=== PATIENT | female | born 2000 | race Caucasian/White ===

== ENCOUNTER 2018-05-23 12:56 | Inpatient (IN) ==
[2018-05-23] MEDS ORDERED: KETOROLAC TROMETHAMINE 15 MG/ML VIAL IV STA (14:09)
[2018-05-23] MEDS ORDERED: SODIUM CHLORIDE 0.9% 1000ML 1,000 ML IV SCH ×2 (14:15→18:00)
[2018-05-23 14:40] LABS: Appearance Urine Turbid (Clear); Bacteria Urine Automated 2+ (Negative); Bilirubin Urine Negative (Negative); Color Urine Dark Yellow; Epithelial Cell Urine Auto >30 /lpf (0-5); Glucose Urine UA Negative (Negative); Ketones Urine Negative (Negative); Leukocyte Esterase Urine 3+ (Negative); Nitrite Urine Negative (Negative); Protein Urine 2+ (Negative); Urobilinogen Urine Negative (Negative); WBC Urine Automated >30 /hpf (0-5)
--- NOTE | 2018-05-23 14:40 | XRay Report ---
XR chest 1V portable HISTORY: 17 years-old Female right rib pain acute atypical chest pain with right-sided rib pain. COMPARISON: None available TECHNIQUE: Portable AP view of the chest FINDINGS: Cardiomediastinal and hilar silhouettes are within normal limits. No pneumothorax, pleural effusion, focal airspace consolidation or overt pulmonary edema. The bones of the chest appear grossly intact. Mild convex right curvature about the lumbar spine, partially imaged. No acute displaced rib fracture identified. IMPRESSION: No acute process. The above report was generated using voice recognition software. It may contain grammatical, syntax o r spelling errors. Electronically signed by: Galindo Palacio M.D. 05/23/2018 2:39 PM
[2018-05-23 15:04] LABS: Basophils # (auto) 0.02 K/uL (0-0.2); Basophils % (auto) 0.2 %; Hematocrit (blood only) 37.4 % (37-47); Hemoglobin 12.5 g/dL (12.0-16.0); Immature Granulocytes # (auto) 0.12 K/uL (0.00-0.02); Immature Granulocytes % (auto) 0.9 %; Lymphocytes % (auto) 3.9 %; Mean Corpuscular Hgb Conc 33.4 g/dL (32-36); Mean Corpuscular Volume 90.1 fL (80-100); Mean Platelet Volume 10.8 fL (7.4-10.4); Monocytes # (auto) 0.43 K/uL (0.11-0.59); Monocytes % (auto) 3.4 %; Neutrophils # (auto) 11.64 K/uL (1.4-6.5); Neutrophils % (auto) 91.6 %; Platelet Count 221 K/uL (130-400); RDW Coefficient of Variation 13.7 % (11.5-14.5); RDW Standard Deviation 44.9 fL (36.4-46.3); Red Blood Count 4.15 M/uL (4.2-5.4); White Blood Count 12.71 K/uL (4.8-10.8)
[2018-05-23 15:19] LABS: Albumin Level 3.5 gm/dl (3.4-5.0); BUN Creatinine Ratio 12.6 (10-20); Calcium 9.1 mg/dl (8.5-10.1); Creatinine Clr Calc Pharmacy 100.6 ml/min; Est GFR (African American) 101.9; Potassium 3.2 mmol/L (3.5-5.1)
[2018-05-23 15:22] LABS: Albumin Globulin Ratio 0.9 (0.9-2); Bilirubin,Total 0.6 mg/dl (0.2-1); Globulin 3.9 gm/dl (2.5-4.0); Total Protein 7.4 gm/dl (6.4-8.2)
[2018-05-23] MEDS ORDERED: MoRPHine SULFATE 4 MG/ML 1 ML CARP\\VIAL IV STA (16:43)
[2018-05-23] MEDS ORDERED: ONDANSETRON INJ 2 MG/ML 2 ML VIAL IV STA (16:43)
--- NOTE | 2018-05-23 16:48 | Ultrasound Report ---
US gallbladder HISTORY: Pain. Nausea. ruq pain COMPARISON: None. FINDINGS: Normal gallbladder. Common bile duct 3 mm. Liver is uniform. Pancreas and right kidney are unremarkab le. No evidence for hydronephrosis. IMPRESSION: Normal study The above report was generated using voice recognition software. It may contain grammatical, syntax or spelling errors. Electronically signed by: Humphrey Portillo M.D. 05/23/2018 4:47 PM
--- NOTE | 2018-05-23 17:19 | CT Scan Report ---
CT angio chest PE protocol CLINICAL HISTORY: 17 years-old Female presenting with right rib pain, elevated d dimer. TECHNIQUE: Multidetector CT angiography of the chest was performed after administration of intravenou s contrast. 3-D volumetric and/or maximum intensity projection (MIP) images were subsequently reconst ructed for review. IV contrast: 89 mL of Optiray 320. One or more dose lowering techniques were used consistent with the principles of ALARA (as low as reasonably achievable), including automatic exposu re control, mA or kV adjustment to individual patient size, and/or use of iterative reconstruction. COMPARISON: Chest x-ray from earlier today. CT DOSE (mGy.cm): The estimated cumulative dose is 1017.79 mGycm. FINDINGS: Hypoid Gear Tester topogram: Unremarkable. Pulmonary vasculature: The study is suboptimal for the assessment of the pulmonary vascular tree secondary to timing of the contrast bolus. Allowing for limited image quality, no central filling defect to suggest pulmonary em bolus. Main pulmonary artery is not enlarged. No flattening of the interventricular septum. No intrac ardiac filling defect. No reflux of contrast into the hepatic veins. Remaining chest: On soft tissue windows, normal thyroid and thoracic inlet. No axillary, supraclavicular, hilar, or me diastinal lymphadenopathy. Normal aorta. Normal heart size. No pericardial or pleural effusion. Upper abdomen normal. On lung windows, no pneumothorax. Central airways patent. No focal infiltrate or nodule. On bone windows, normal osseous structures. IMPRESSION: 1. Allowing for suboptimal image quality, no evidence of pulmonary embolus. No acute intrathoracic p athology. Electronically signed by: Dom Arreaga M.D. 05/23/2018 5:18 PM
--- NOTE | 2018-05-23 17:26 | CT Scan Report ---
CT abd pelvis IV con only CT DOSE: HISTORY: Pain. Nausea. ruq pain TECHNIQUE: Multiaxial CT images of the abdomen and pelvis were performed following the use of intrave nous contrast. A dose lowering technique was utilized adhering to the principles of ALARA. COMPARISON STUDY: None. FINDINGS: Lung bases are clear. Liver spleen and pancreas are uniform. Heterogeneous enhancement characteristics are noted upper and lower pole right kidney. This is associ ated with mild degree of perinephric infiltrative change primarily adjacent to the lower pole. This appearance is highly suggestive of multifocal pyelonephritis. Nonobstructive bowel pattern. Unremarkable appendix. Uterus is anteflexed. Bladder is midline. No sig nificant free fluid within the pelvic cul-de-sac. IMPRESSION: 1. Right renal pyelonephritis. 2. Mild perinephric infiltrative change. 3. Study is otherwise negative. 4. This study should be repeated a later date following resolution of current symptomatology to exclu de the unlikely possibility of a space-occupying lesion. The above report was generated using voice recognition software. It may contain grammatical, syntax or spelling errors. Electronically signed by: Humphrey Portillo M.D. 05/23/2018 5:24 PM
[2018-05-23] MEDS ORDERED: cefTRIAXone SODIUM 1000MG/50ML D5W ONE (17:39)
[2018-05-23] MEDS ORDERED: cefTRIAXone SODIUM 1,000 MG/50 ML BAG IV STA (17:46)
[2018-05-23] MEDS ORDERED: ACETAMINOPHEN 500 MG TAB PO STA (17:46)
--- NOTE | 2018-05-23 18:15 | Emergency Department Note ---
History of Present Illness General Chief complaint: Flu Like Symptoms Stated complaint: FLU,VOMITTING, BAD SHARP PAIN RIGHT ABD Time Seen by Provider: 05/23/18 13:42 Source: patient Mode of arrival: ambulatory Limitations: no limitations History of Present Illness Maximum Pain Intensity: 6 This patient is a 17-year-old female who presents to the emergency department complaining of flulike symptoms. The patient reports that she woke up yesterday with a fever. She has also had body aches, headache, chills, and pain in her right side with vomiting. She does report that 2 days ago prior to the onset, she had some pain in the right side of her back but this has now moved to the abdomen. She rates her discomfort a 10/10 and states it is a very sharp pain. Nothing has made the pain better or worse. She has been taking [id number] ibuprofen and Tylenol which she does feel has been helping her fever. She first developed the vomiting last night and has remained nauseous. She denies any urinary symptoms, changes in bowel movements, neck pain/stiffness , cough or shortness of breath. She denies any history of similar symptoms. She had left hip labrum repair 2 months ago and was treated for a staph infection afterwards, but has been off antibiotics for approximately 3 weeks and states the hip has been feeling well. She reports a prior history of tonsillectomy and adenoidectomy and inguinal hernia repair and denies any other medical problems. The patient does report she was seen at [facility] yesterday and had a negative influenza test. Home Medications Home Medications Medication Instructions Recorded Confirmed Type ibuprofen 200 mg PO QID PRN 05/23/18 05/23/18 History lisdexamfetamine [Vyvanse] 20 mg PO QAM 05/23/18 05/23/18 History naproxen sodium 220 mg PO BID PRN 05/23/18 05/23/18 History norgestimate-ethinyl estradiol 1 tab PO DAILY 05/23/18 05/23/18 History [Valentina (28)] Allergies Allergy/AdvReac Type Severity Reaction Status Date / Time No Known Allergies Allergy Unverified 05/23/18 13:27 Past Med/Surg History Medical History No significant active problems Surgical History History of tonsillectomy Social History Feels Safe at Home: Yes Smoking Status: Never smoker Review of Systems A total of 10 systems reviewed and were otherwise negative Physical Exam Vital Signs Vital Signs - 24 hr 05/23/18 13:00 05/23/18 15:09 05/23/18 16:55 Temperature 37.4 C Temperature Source Oral Sepsis Recent Fever Within 48 Hours Yes Sepsis New/Unexplained Change in Mental Status No Sepsis Action Taken by Nursing No Action Required Pulse Rate 138 H Pulse Rate [Finger] 102 H 120 H Respiratory Rate 20 16 22 Respiratory Effort / Characteristics Non-Labored Respiratory Depth Normal Normal Blood Pressure 103/65 Blood Pressure [Left Arm] 110/79 104/67 Blood Pressure Mean 77 Blood Pressure Mean [Left Arm] 89 79 Blood Pressure Position [Left Arm] Lying Pulse Oximetry 97 100 98 Oxygen Delivery Method Room Air VITALS: Vitals are noted on the nurse's note and reviewed by myself. Vital signs stable. GENERAL: This is a 17-year-old female, in no acute distress, nondiaphoretic, well-developed well-nourished. SKIN: The skin was without rashes. EARS: External auditory canals clear, tympanic membranes pearly galeano without erythema or effusion bilaterally. EYES: Pupils equal round and reactive to light and accommodation. MOUTH: Mucous membranes moist. Tonsils are not enlarged. Pharynx without erythema or exudate. NECK: Supple without nuchal rigidity. No lymphadenopathy. HEART: Regular rate and rhythm without murmurs gallops or rubs. LUNGS: Clear to auscultation bilaterally without wheezes, rales or rhonchi. ABDOMEN: Positive bowel sounds x 4. Soft, tenderness in the right upper quadrant and right flank. No guarding or rebound tenderness. NEURO: Patient was alert and oriented to person place and time. Course Reevaluation(s) Reevaluation #1: Patient was reevaluated and still having pain. A dose of morphine was ordered. Reevaluation #2: Patient was reevaluated. She has now developed a fever and is still tachycardic. She is agreeable to admission. An additional liter of fluids as well as Tylenol and Rocephin were ordered. Blood cultures were ordered and drawn prior to administration of antibiotics. Consultations Consultation #1: Dr. Lemus Administered Medications Sodium Chloride (Nss 1000ml) 1,000 mls @ 999 mls/hr IV .Q1H1M JAVIER Stop: 05/23/18 19:00 Last Admin: 05/23/18 18:01 Dose: 999 mls/hr Discontinued Medications Acetaminophen (Tylenol) 1,000 mg PO NOW STA Stop: 05/23/18 17:47 Last Admin: 05/23/18 18:01 Dose: 1,000 mg Sodium Chloride (Nss 1000ml) 1,000 mls @ 999 mls/hr IV .Q1H1M JAVIER Stop: 05/23/18 15:15 Last Admin: 05/23/18 15:07 Dose: 999 mls/hr Ketorolac Tromethamine (Toradol) 15 mg IV NOW STA Stop: 05/23/18 14:10 Last Admin: 05/23/18 15:05 Dose: 15 mg Morphine Sulfate (Morphine Sulfate) 4 mg IV NOW STA Stop: 05/23/18 16:44 Last Admin: 05/23/18 16:50 Dose: 4 mg Ondansetron HCl (Zofran) 4 mg IV NOW STA Stop: 05/23/18 16:44 Last Admin: 05/23/18 16:50 Dose: 4 mg Medical Decision Making Differential Diagnosis Difficult diagnosis includes influenza, pyelonephritis, cholecystitis, PE, pneumonia, pancreatitis, gastroenteritis, viral illness, among others. Home Medications Current Medication List: was personally reviewed by me Laboratory Data Attestation: I reviewed the patient's lab results. Result diagrams: 05/23/18 14:42 05/23/18 14:42 Lab Results 05/23/18 05/23/18 05/23/18 Range/Units 14:24 14:24 14:42 WBC 12.71 H (4.8-10.8) K/uL RBC 4.15 L (4.2-5.4) M/uL Hgb 12.5 (12.0-16.0) g/dL Hct 37.4 (37-47) % MCV 90.1 (80-100) fL MCH 30.1 (25-34) pg MCHC 33.4 (32-36) g/dL RDW Std Deviation 44.9 (36.4-46.3) fL RDW Coeff of Karoline 13.7 (11.5-14.5) % Plt Count 221 (130-400) K/uL MPV 10.8 H (7.4-10.4) fL Immature Gran % (Auto) 0.9 % Neut % (Auto) 91.6 % Lymph % (Auto) 3.9 % [place] % (Auto) 3.4 % Eos % (Auto) 0.0 % Baso % (Auto) 0.2 % Immature Gran # (Auto) 0.12 H (0.00-0.02) K/uL Neut # (Auto) 11.64 H (1.4-6.5) K/uL Lymph # (Auto) 0.50 L (1.2-3.4) K/uL [place] # (Auto) 0.43 (0.11-0.59) K/uL Eos # (Auto) 0.00 (0-0.5) K/uL Baso # (Auto) 0.02 (0-0.2) K/uL D-Dimer (0-500) ug/L FEU Sodium (136-145) mmol/L Potassium (3.5-5.1) mmol/L Chloride (98-107) mmol/L Carbon Dioxide (21-32) mmol/L Anion Gap (3-11) BUN (7-18) mg/dl Creatinine (0.6-1.2) mg/dl Est Cr Clr Drug Dosing ml/min Est GFR ( Amer) Est GFR (Non-Af Amer) BUN/Creatinine Ratio (10-20) Glucose (70-99) mg/dl Calcium (8.5-10.1) mg/dl Total Bilirubin (0.2-1) mg/dl AST (15-37) U/L ALT (12-78) U/L Alkaline Phosphatase (45-117) U/L Total Protein (6.4-8.2) gm/dl Albumin (3.4-5.0) gm/dl Globulin (2.5-4.0) gm/dl Albumin/Globulin Ratio (0.9-2) Lipase (73-393) U/L Urine Color Dark Yellow Urine Appearance Turbid H (Clear) Urine pH 5.0 (4.5-7.5) Ur Specific [place] 1.020 (1.000-1.030) Urine Protein 2+ H (Negative) Urine Glucose (UA) Negative (Negative) Urine Ketones Negative (Negative) Urine Blood 2+ H (Negative) Urine Nitrite Negative (Negative) Urine Bilirubin Negative (Negative) Urine Urobilinogen Negative (Negative) Ur Leukocyte Esterase 3+ H (Negative) Urine WBC (Auto) >30 H (0-5) /hpf Urine RBC (Auto) 10-30 H (0-4) /hpf U Hyaline Cast (Auto) Not Reportable U Epithel Cells (Auto) >30 H (0-5) /lpf Urine Bacteria (Auto) 2+ H (Negative) POC Ur Test NEG (NEG) 05/23/18 05/23/18 Range/Units 14:42 14:42 WBC (4.8-10.8) K/uL RBC (4.2-5.4) M/uL Hgb (12.0-16.0) g/dL Hct (37-47) % MCV (80-100) fL MCH (25-34) pg MCHC (32-36) g/dL RDW Std Deviation (36.4-46.3) fL RDW Coeff of Karoline (11.5-14.5) % Plt Count (130-400) K/uL MPV (7.4-10.4) fL Immature Gran % (Auto) % Neut % (Auto) % Lymph % (Auto) % [place] % (Auto) % Eos % (Auto) % Baso % (Auto) % Immature Gran # (Auto) (0.00-0.02) K/uL Neut # (Auto) (1.4-6.5) K/uL Lymph # (Auto) (1.2-3.4) K/uL [place] # (Auto) (0.11-0.59) K/uL Eos # (Auto) (0-0.5) K/uL Baso # (Auto) (0-0.2) K/uL D-Dimer 2640 H* (0-500) ug/L FEU Sodium 138 (136-145) mmol/L Potassium 3.2 L (3.5-5.1) mmol/L Chloride 103 (98-107) mmol/L Carbon Dioxide 25 (21-32) mmol/L Anion Gap 10.0 (3-11) BUN 12 (7-18) mg/dl Creatinine 0.94 (0.6-1.2) mg/dl Est Cr Clr Drug Dosing 100.6 ml/min Est GFR ( Amer) 101.9 Est GFR (Non-Af Amer) 88.0 BUN/Creatinine Ratio 12.6 (10-20) Glucose 101 H (70-99) mg/dl Calcium 9.1 (8.5-10.1) mg/dl Total Bilirubin 0.6 (0.2-1) mg/dl AST 12 L (15-37) U/L ALT 15 (12-78) U/L Alkaline Phosphatase 47 (45-117) U/L Total Protein 7.4 (6.4-8.2) gm/dl Albumin 3.5 (3.4-5.0) gm/dl Globulin 3.9 (2.5-4.0) gm/dl Albumin/Globulin Ratio 0.9 (0.9-2) Lipase 52 L (73-393) U/L Urine Color Urine Appearance (Clear) Urine pH (4.5-7.5) Ur Specific [place] (1.000-1.030) Urine Protein (Negative) Urine Glucose (UA) (Negative) Urine Ketones (Negative) Urine Blood (Negative) Urine Nitrite (Negative) Urine Bilirubin (Negative) Urine Urobilinogen (Negative) Ur Leukocyte Esterase (Negative) Urine WBC (Auto) (0-5) /hpf Urine RBC (Auto) (0-4) /hpf U Hyaline Cast (Auto) U Epithel Cells (Auto) (0-5) /lpf Urine Bacteria (Auto) (Negative) POC Ur Test (NEG) Imaging Data Attestation: I personally reviewed and interpreted this imaging study as follows : Radiologist's Impression: XR chest 1V portable IMPRESSION: No acute process. US gallbladder IMPRESSION: Normal study CT angio chest PE protocol IMPRESSION: 1. Allowing for suboptimal image quality, no evidence of pulmonary embolus. No acute intrathoracic pathology. CT abd pelvis IV con only FINDINGS: Lung bases are clear. Liver spleen and pancreas are uniform. Heterogeneous enhancement characteristics are noted upper and lower pole right kidney. This is associated with mild degree of perinephric infiltrative change primarily adjacent to the lower pole. This appearance is highly suggestive of multifocal pyelonephritis. Nonobstructive bowel pattern. Unremarkable appendix. Uterus is anteflexed. Bladder is midline. No significant free fluid within the pelvic cul-de-sac. IMPRESSION: 1. Right renal pyelonephritis. 2. Mild perinephric infiltrative change. 3. Study is otherwise negative. 4. This study should be repeated a later date following resolution of current symptomatology to exclude the unlikely possibility of a space-occupying lesion. Blood Pressure Blood Pressure Findings: Normal blood pressure MDM Narrative The patient is a 17-year-old female who presents today complaining of flulike symptoms as well as right flank/upper abdominal pain. Labs revealed a leukocytosis of 12.71. Kidney function is within normal limits. No concerning electrolyte abnormalities. Chest x-ray and right upper quadrant ultrasound both negative. Given patient's location of pain and significant tachycardia on arrival, d-dimer was done which was found to be elevated at 2640. CT of the chest as well as the abdomen and pelvis were done. There was no evidence of PE , however CT abdomen pelvis did show right pyelonephritis which correlates with patient's urinalysis, positive for 2+ bacteria, greater than 30 white blood cells and 3+ leukocyte esterase. Patient was initially afebrile and heart rate had increased to 102 after receiving fluids, however on my reassessment she had spiked a temperature of 39 C and her heart rate was again elevated in the 120s-130s. Given these findings , [facility] and [facility]. Blood cultures were drawn and are pending. Urine culture pending. Patient was given 1 g Rocephin and did receive 2 L IV fluids as well as 1 g Tylenol, 4 mg morphine, 4 mg Zofran and 15 mg Toradol for her symptoms. Impression & Plan Pyelonephritis Discharge Plan Visit Data Chief Complaint: Flu Like Symptoms Stated Complaint: FLU,VOMITTING, BAD SHARP PAIN RIGHT ABD ED Provider: Gaetano Garduno ED Midlevel Provider: Nano Karimi Discharge Problem: Pyelonephritis Patient Disposition: Admitted As Inpatient Forms Stand Alone Forms: My [facility] Prescriptions Prescriptions: No Action norgestimate-ethinyl estradiol [Sprintec (28)] 0.25-35 mg-mcg Tablet 1 tab PO DAILY RF: 0 ibuprofen 200 mg Tablet 200 mg PO QID PRN (Reason: Pain) RF: 0 naproxen sodium 220 mg Capsule 220 mg PO BID PRN (Reason: HIP PAIN) RF: 0 lisdexamfetamine [Vyvanse] 20 mg Tablet,Chewable 20 mg PO QAM RF: 0 Referrals Referrals: PCP,NO [Primary Care Provider] -
[2018-05-23] MEDS ORDERED: ONDANSETRON INJ 2 MG/ML 2 ML VIAL IV PRN (21:01)
--- NOTE | 2018-05-23 21:33 | History & Physical Report ---
Date of Service May 23, 2018 Assessment & Plan (1) Pyelonephritis: Right pyelo diagnosed with positive urine and seen on CT a/p on 05/23. - Ceftriaxone - IV fluids - Pain control - Follow up cultures (2) Labral tear of hip joint: Repair done ~2 months ago with a post-operative Staph infection, now resolved. Continues to take ibuprofen and naproxen 1-2 times a day. - No inpatient needs (3) DVT prophylaxis: SCDs - Low risk patient History of Present Illness Primary Care Provider: NO PCP 17yo F w/ no significant PMH who presents with pyelonephritis. Patient reports that she initially noted right flank & back pain on Monday. She also had some mild UTI symptoms at that time, but she has had quite a few UTIs, and didn't think much of it. However, on Monday, she also had a fever to 101, felt achy, stiff, and also had some nausea and vomiting. The UTI symptoms got worse as well on Monday. In the ED, she initially had a pulse of 130 which improved with IV fluids and Tylenol. Allergies Allergy/AdvReac Type Severity Reaction Status Date / Time No Known Allergies Allergy Unverified 05/23/18 13:27 Home Medications Home Medications Medication Instructions Recorded Confirmed Type ibuprofen 200 mg PO QID PRN 05/23/18 05/23/18 History lisdexamfetamine [Vyvanse] 20 mg PO QAM 05/23/18 05/23/18 History naproxen sodium 220 mg PO BID PRN 05/23/18 05/23/18 History norgestimate-ethinyl estradiol 1 tab PO DAILY 05/23/18 05/23/18 History [Sprintec (28)] Past Med/Surg History Medical History Labral tear of hip joint No significant active problems UTI (urinary tract infection) Surgical History History of tonsillectomy Family History Brother Asthma Social History Current Living Situation: Other Current Living Situation Comment: apartment w/ 4 roommates Feels Safe at Home: Yes Smoking Status: Never smoker Do You Dip or Chew Tobacco: No Hx Alcohol Use: No Hx Substance Use: No Beliefs That Will Affect Care: None Preferred Language: Bulgarian Communication Ability: Effective Talking Books Library Clerk Required: No Review of Systems Constitutional: + fever, + chills, + body aches and + fatigue; no sweats Eyes: no diplopia Ear, Nose, Mouth, Throat: no ear trauma, no nasal discharge and no dental pain Respiratory: no cough, no chest congestion and no dyspnea Cardiovascular: no chest pain, no dyspnea on exertion, no palpitations and no syncope Gastrointestinal: no abdominal pain, no belching, no constipation, no diarrhea/ loose stools, no blood in stools and no melena Genitourinary (Female): + flank pain Musculoskeletal: no back pain, no joint pain and no muscle weakness Integumentary: no rash, no skin ulcer and no erythema Neurologic: no generalized weakness, no loss of sensation, no numbness and no paresthesia Psychiatric: no depression and no anxiety Endocrine: no fatigue, no polydipsia and no polyphagia Physical Exam 2 Vital Signs (Past 24 Hours): Last Vital Signs Temp 38.8 C H 05/23/18 18:30 Pulse 120 H 05/23/18 19:11 Resp 18 05/23/18 19:11 BP 107/77 05/23/18 19:11 Pulse Ox 100 05/23/18 19:11 Constitutional: WD/WN, vitals as above Eyes: EOM intact bilaterally; no conjunctival abnormality ENMT: external ear and nose normal, oropharynx normal Neck: trachea midline, no thyromegaly normal visual inspection Respiratory: normal respiratory effort, lungs clear to auscultation no respiratory distress Cardiovascular: Rate/Rhythm: + tachycardic Heart Sounds: normal S1 and normal S2 Extremities: no edema Gastrointestinal (Abdomen): Inspection/Auscultation: abdomen normal to inspection; abdomen not distended Musculoskeletal: no cyanosis or clubbing, extremities motor strength 5/5 Skin: no rashes, warm and dry Neurologic: moves all extremities and awake Psychiatric: Orientation: alert, oriented to person and cooperative
[2018-05-23] MEDS: ACETAMINOPHEN 325 MG TAB PO PRN (21:43)
[2018-05-23] MEDS: POTASSIUM CHLORIDE 40 MEQ in SODIUM CHLORIDE 0.9% 1000ML 1,000 ML IV SCH (23:25)
[2018-05-24] MEDS: ACETAMINOPHEN 325 MG TAB PO PRN ×2 (02:39→06:44)
[2018-05-24] MEDS ORDERED: ACETAMINOPHEN 325 MG TAB PO STA (04:03)
[2018-05-24] MEDS: POTASSIUM CHLORIDE 40 MEQ in SODIUM CHLORIDE 0.9% 1000ML 1,000 ML IV SCH ×3 (06:47→23:11)
[2018-05-24 08:08] LABS: BUN Creatinine Ratio 13.8 (10-20); Calcium 7.7 mg/dl (8.5-10.1); Creatinine Clr Calc Pharmacy 116.7 ml/min; Est GFR (Non-African American) 105.3; Magnesium 1.6 mg/dl (1.8-2.4); Potassium 3.7 mmol/L (3.5-5.1)
[2018-05-24 08:13] LABS: Hematocrit (blood only) 27.3 % (37-47); Hemoglobin 9.3 g/dL (12.0-16.0); Mean Corpuscular Hgb Conc 34.1 g/dL (32-36); Mean Corpuscular Volume 89.5 fL (80-100); Platelet Count 179 K/uL (130-400); RDW Coefficient of Variation 13.8 % (11.5-14.5); RDW Standard Deviation 45.3 fL (36.4-46.3); Red Blood Count 3.05 M/uL (4.2-5.4); White Blood Count 9.53 K/uL (4.8-10.8)
--- NOTE | 2018-05-24 09:45 | Hospitalist Progress Note ---
Date of Service May 24, 2018 Assessment & Plan (1) Pyelonephritis: Right pyelo diagnosed with positive urine and seen on CT a/p on 05/23. patient not feeling better overnight, still with fevers, chills, sweats and aches still with tachycardia, BP low normal continue Rocephin for now, add a dose of Levaquin 750mg this morning urine culture growing E coli, sensitivities pending blood culture negative continue NSS at 125cc/hr will see how she feels with addition of Levaquin (2) Sepsis: due to pyelonephritis leukocytosis and febrile, tachycardia follow up blood cultures no evidence of end organ damage or shock (3) Hypomagnesemia: replace IV today level low at 1.6 repeat tomorrow (4) Anemia: Hb dropped to 9 from 12, likely dilutional as there is no evidence of bleeding could consider hemolysis, platelets normal will repeat Hb this afternoon with bilirubin, LDH if dropping further could get a smear to look for schistocytes (5) DVT prophylaxis: SCDs - Low risk patient (6) Labral tear of hip joint: Repair done ~2 months ago with a post-operative Staph infection, now resolved. Continues to take ibuprofen and naproxen 1-2 times a day. - No inpatient needs Subjective reviewed labs, WBC normal at 9 compared to 12 on admission Cr is 0.8 and K is stable Mg is 1.6 this morning, replacement ordered still with tachycardia, BP low normal spiking fevers over night despite a dose of Rocephin patient not feeling any better since admission fever, chills, sweats last night, still with flank pain tried to eat this morning but food made her nauseated, no vomiting generalized aches discussed trying Levaquin in addition to the Rocephin since she did not feel any better she agreed Review of Systems All systems reviewed & are unremarkable except as noted in HPI & below Constitutional: + fever, + chills, + sweats, + body aches, + fatigue, + malaise and + weakness Genitourinary (Female): + flank pain (right sided) Physical Exam 2 Vital Signs (Past 24 Hours): Last Vital Signs Temp 37.8 C H 05/24/18 07:43 Pulse 118 H 05/24/18 07:16 Resp 18 05/24/18 07:16 BP 96/63 L 05/24/18 07:16 Pulse Ox 98 05/24/18 07:16 Constitutional: WD/WN, vitals as above Eyes: PERRL, conjunctivae normal, anicteric sclerae ENMT: external ear and nose normal, oropharynx normal Neck: trachea midline, no thyromegaly Respiratory: normal respiratory effort, lungs clear to auscultation Cardiovascular: Rate/Rhythm: regular rhythm and + tachycardic Heart Sounds : normal S1 and normal S2; no murmur Vessels: normal peripheral pulses Gastrointestinal (Abdomen): normal bowel sounds, soft, nontender, no hepatosplenomegaly Musculoskeletal: no cyanosis or clubbing, extremities motor strength 5/5 Skin: no rashes, warm and dry Neurologic: patellar DTR's 2+ bilat, sensation intact and PERRL, EOMI, accommodation nl, no face palsy, no dysarthria Psychiatric: A+Ox3, euthymic affect Lymphatic: no cervical or axillary lymphadenopathy Results & Data Laboratory Results Laboratory Results - last 24 hr 05/23/18 05/23/18 05/23/18 14:24 14:24 14:42 WBC 12.71 H RBC 4.15 L Hgb 12.5 Hct 37.4 MCV 90.1 MCH 30.1 MCHC 33.4 RDW Std Deviation 44.9 RDW Coeff of Kar[place] 13.7 Plt Count 221 MPV 10.8 H Immature Gran % (Auto) 0.9 Neut % (Auto) 91.6 Lymph % (Auto) 3.9 [place] % (Auto) 3.4 Eos % (Auto) 0.0 Baso % (Auto) 0.2 Immature Gran # (Auto) 0.12 H Neut # (Auto) 11.64 H Lymph # (Auto) 0.50 L [place] # (Auto) 0.43 Eos # (Auto) 0.00 Baso # (Auto) 0.02 D-Dimer Sodium Potassium Chloride Carbon Dioxide Anion Gap BUN Creatinine Est Cr Clr Drug Dosing Est GFR ( Amer) Est GFR (Non-Af Amer) BUN/Creatinine Ratio Glucose Lactate Calcium Magnesium Total Bilirubin AST ALT Alkaline Phosphatase Total Protein Albumin Globulin Albumin/Globulin Ratio Lipase Urine Color Dark Yellow Urine Appearance Turbid H Urine pH 5.0 Ur Specific [place] 1.020 Urine Protein 2+ H Urine Glucose (UA) Negative Urine Ketones Negative Urine Blood 2+ H Urine Nitrite Negative Urine Bilirubin Negative Urine Urobilinogen Negative Ur Leukocyte Esterase 3+ H Urine WBC (Auto) >30 H Urine RBC (Auto) 10-30 H U Hyaline Cast (Auto) Not Reportable U Epithel Cells (Auto) >30 H Urine Bacteria (Auto) 2+ H POC Ur Test NEG 05/23/18 05/23/18 05/23/18 14:42 14:42 18:16 WBC RBC Hgb Hct MCV MCH MCHC RDW Std Deviation RDW Coeff of Karoline Plt Count MPV Immature Gran % (Auto) Neut % (Auto) Lymph % (Auto) [place] % (Auto) Eos % (Auto) Baso % (Auto) Immature Gran # (Auto) Neut # (Auto) Lymph # (Auto) [place] # (Auto) Eos # (Auto) Baso # (Auto) D-Dimer 2640 H* Sodium 138 Potassium 3.2 L Chloride 103 Carbon Dioxide 25 Anion Gap 10.0 BUN 12 Creatinine 0.94 Est Cr Clr Drug Dosing 100.6 Est GFR ( Amer) 101.9 Est GFR (Non-Af Amer) 88.0 BUN/Creatinine Ratio 12.6 Glucose 101 H Lactate 2.4 H* Calcium 9.1 Magnesium Total Bilirubin 0.6 AST 12 L ALT 15 Alkaline Phosphatase 47 Total Protein 7.4 Albumin 3.5 Globulin 3.9 Albumin/Globulin Ratio 0.9 Lipase 52 L Urine Color Urine Appearance Urine pH Ur Specific [place] Urine Protein Urine Glucose (UA) Urine Ketones Urine Blood Urine Nitrite Urine Bilirubin Urine Urobilinogen Ur Leukocyte Esterase Urine WBC (Auto) Urine RBC (Auto) U Hyaline Cast (Auto) U Epithel Cells (Auto) Urine Bacteria (Auto) POC Ur Test 05/24/18 05/24/18 06:41 06:41 WBC 9.53 RBC 3.05 L Hgb 9.3 L D Hct 27.3 L MCV 89.5 MCH 30.5 MCHC 34.1 RDW Std Deviation 45.3 RDW Coeff of Karoline 13.8 Plt Count 179 MPV 11.0 H Immature Gran % (Auto) Neut % (Auto) Lymph % (Auto) [place] % (Auto) Eos % (Auto) Baso % (Auto) Immature Gran # (Auto) Neut # (Auto) Lymph # (Auto) [place] # (Auto) Eos # (Auto) Baso # (Auto) D-Dimer Sodium 138 Potassium 3.7 D Chloride 108 H Carbon Dioxide 22 Anion Gap 8.0 BUN 11 Creatinine 0.81 Est Cr Clr Drug Dosing 116.7 Est GFR ( Amer) 122.0 Est GFR (Non-Af Amer) 105.3 BUN/Creatinine Ratio 13.8 Glucose 104 H Lactate Calcium 7.7 L D Magnesium 1.6 L Total Bilirubin AST ALT Alkaline Phosphatase Total Protein Albumin Globulin Albumin/Globulin Ratio Lipase Urine Color Urine Appearance Urine pH Ur Specific [place] Urine Protein Urine Glucose (UA) Urine Ketones Urine Blood Urine Nitrite Urine Bilirubin Urine Urobilinogen Ur Leukocyte Esterase Urine WBC (Auto) Urine RBC (Auto) U Hyaline Cast (Auto) U Epithel Cells (Auto) Urine Bacteria (Auto) POC Ur Test Medications Administered Current Inpatient Medications Acetaminophen (Tylenol) 650 mg PO Q4H PRN PRN Reason: pain/fever Stop: 06/22/18 21:00 Last Admin: 05/24/18 06:44 Dose: 650 mg Ceftriaxone Sodium 1,000 mg/ (Dextrose) 50 mls @ 100 mls/hr IV Q24H [facility]; Protocol Stop: 06/01/18 18:29 Potassium Chloride 40 meq/ (Sodium Chloride) 1,020 mls @ 125 mls/hr IV .Q8H10M [facility] Stop: 06/22/18 21:59 Last Admin: 05/24/18 06:47 Dose: 125 mls/hr Magnesium Sulfate/Dextrose (Magnesium Sulfate / D5w) 1 gm in 100 mls @ 100 mls/ hr IV Q1H [facility] Stop: 05/24/18 11:59 Levofloxacin/Dextrose (Levaquin/D5w) 750 mg in 150 mls @ 100 mls/hr IV Q24H [facility] Stop: 06/03/18 09:44 Ketorolac Tromethamine (Toradol) 15 mg IV Q6H PRN PRN Reason: Pain Stop: 05/28/18 21:57 Ondansetron HCl (Zofran) 4 mg IV Q4H PRN PRN Reason: Nausea Stop: 06/22/18 21:00
[2018-05-24] MEDS: MAGNESIUM SULFATE / D5W 1 GM/100 ML BAG IV SCH ×2 (10:23→11:21)
[2018-05-24] MEDS ORDERED: LEVOFLOXACIN/D5W 750 MG/150 ML BAG IV SCH (11:00)
[2018-05-24] MEDS ORDERED: ACETAMINOPHEN 1,000 MG/100 ML VIAL IV ONE (12:00)
[2018-05-24] MEDS: PANTOprazole 40 MG in SYRINGE 0 ML IV SCH (13:47)
[2018-05-24 14:30] LABS: Basophils # (auto) 0.01 K/uL (0-0.2); Basophils % (auto) 0.1 %; Eosinophils # (auto) 0.02 K/uL (0-0.5); Eosinophils % (auto) 0.2 %; Hematocrit (blood only) 28.5 % (37-47); Hemoglobin 9.6 g/dL (12.0-16.0); Immature Granulocytes # (auto) 0.04 K/uL (0.00-0.02); Immature Granulocytes % (auto) 0.4 %; Lymphocytes # (auto) 0.84 K/uL (1.2-3.4); Mean Corpuscular Hgb Conc 33.7 g/dL (32-36); Mean Corpuscular Volume 88.5 fL (80-100); Mean Platelet Volume 10.8 fL (7.4-10.4); Monocytes % (auto) 7.5 %; Neutrophils # (auto) 7.68 K/uL (1.4-6.5); Neutrophils % (auto) 82.8 %; Platelet Count 165 K/uL (130-400); RDW Coefficient of Variation 13.6 % (11.5-14.5); RDW Standard Deviation 44.7 fL (36.4-46.3); Red Blood Count 3.22 M/uL (4.2-5.4); White Blood Count 9.29 K/uL (4.8-10.8)
[2018-05-24] MEDS: KETOROLAC TROMETHAMINE 15 MG/ML VIAL IV PRN (14:33)
[2018-05-24 14:45] LABS: Bilirubin Direct 0.2 mg/dl (0-0.2); Bilirubin,Total 0.5 mg/dl (0.2-1)
[2018-05-24] MEDS: MoRPHine SULFATE 4 MG/ML 1 ML CARP\\VIAL IV PRN ×2 (14:58→22:28)
[2018-05-24] MEDS ORDERED: cefTRIAXone SODIUM 1,000 MG in DEXTROSE 5% 50 ML IV SCH (18:00)
[2018-05-24] MEDS: ACETAMINOPHEN 1,000 MG/100 ML VIAL IV SCH (19:19)
[2018-05-25] MEDS: MoRPHine SULFATE 4 MG/ML 1 ML CARP\\VIAL IV PRN ×3 (02:03→22:34)
[2018-05-25] MEDS: ACETAMINOPHEN 1,000 MG/100 ML VIAL IV SCH ×3 (03:31→20:02)
[2018-05-25 06:38] LABS: Basophils # (auto) 0.01 K/uL (0-0.2); Basophils % (auto) 0.1 %; Eosinophils # (auto) 0.02 K/uL (0-0.5); Eosinophils % (auto) 0.2 %; Hematocrit (blood only) 32.6 % (37-47); Hemoglobin 11.2 g/dL (12.0-16.0); Immature Granulocytes # (auto) 0.06 K/uL (0.00-0.02); Immature Granulocytes % (auto) 0.5 %; Lymphocytes # (auto) 1.39 K/uL (1.2-3.4); Lymphocytes % (auto) 12.6 %; Mean Corpuscular Hgb Conc 34.4 g/dL (32-36); Mean Corpuscular Volume 88.6 fL (80-100); Mean Platelet Volume 10.7 fL (7.4-10.4); Monocytes # (auto) 1.01 K/uL (0.11-0.59); Monocytes % (auto) 9.2 %; Neutrophils % (auto) 77.4 %; Platelet Count 220 K/uL (130-400); RDW Coefficient of Variation 13.7 % (11.5-14.5); RDW Standard Deviation 45.2 fL (36.4-46.3); Red Blood Count 3.68 M/uL (4.2-5.4); White Blood Count 10.99 K/uL (4.8-10.8)
[2018-05-25] MEDS: POTASSIUM CHLORIDE 40 MEQ in SODIUM CHLORIDE 0.9% 1000ML 1,000 ML IV SCH ×2 (06:51→14:38)
[2018-05-25 07:13] LABS: BUN Creatinine Ratio 9.7 (10-20); Calcium 8.5 mg/dl (8.5-10.1); Creatinine Clr Calc Pharmacy 122.8 ml/min; Est GFR (African American) 129.7; Est GFR (Non-African American) 111.9; Magnesium 1.8 mg/dl (1.8-2.4); Potassium 4.6 mmol/L (3.5-5.1)
[2018-05-25] MEDS: cefTRIAXone SODIUM 2,000 MG in DEXTROSE 5% 50 ML IV SCH (11:06)
[2018-05-25] MEDS: PANTOprazole 40 MG in SYRINGE 0 ML IV SCH (11:06)
--- NOTE | 2018-05-25 15:54 | Hospitalist Progress Note ---
Date of Service May 25, 2018 Assessment & Plan (1) Pyelonephritis: Right pyelo diagnosed with positive urine and seen on CT a/p on 05/23. patient much better today, 2/ eating, fevers are less frequent and less intense pain controlled with Morphine urine culture grew E coli, sensitive to Rocephin will change frequency of Rocephin to q12 stop Levaquin stop fluids want patient to be afebrile for 24 hours prior to discharge will change to PO cephalosporin prior to discharge complete 14 days total (2) Sepsis: due to pyelonephritis leukocytosis and febrile, tachycardia follow up blood cultures - no growth no evidence of end organ damage or shock sepsis resolved (3) Hypomagnesemia: resolved, 1.8 today after replacement (4) Anemia: Hb dropped to 9 from 12, likely dilutional as there is no evidence of bleeding up to 11 today (5) DVT prophylaxis: SCDs - Low risk patient (6) Labral tear of hip joint: Repair done ~2 months ago with a post-operative Staph infection, now resolved. Continues to take ibuprofen and naproxen 1-2 times a day. - No inpatient needs Subjective patient feeling much, much better today low grade temperatures still but not spiking high fevers or experiencing sweats morphine helps with pain and allows her to sleep appetite is back today WBC normal urine culture with E coli, sensitive to Rocephin updated patient's parents at the bedside mother requests a follow up with the [facility] family practice asked CM to arrange Review of Systems All systems reviewed & are unremarkable except as noted in HPI & below Constitutional: + fever, + chills, + sweats, + body aches, + fatigue and + weakness Gastrointestinal: no abdominal pain, no nausea and no vomiting Genitourinary (Female): + flank pain (right side); no dysuria Physical Exam 2 Vital Signs (Past 24 Hours): Last Vital Signs Temp 36.6 C 05/25/18 15:08 Pulse 85 05/25/18 15:08 Resp 20 05/25/18 15:08 BP 119/64 05/25/18 15:08 Pulse Ox 96 05/25/18 15:08 Constitutional: WD/WN, vitals as above Eyes: PERRL, conjunctivae normal, anicteric sclerae ENMT: external ear and nose normal, oropharynx normal Neck: trachea midline, no thyromegaly Respiratory: normal respiratory effort, lungs clear to auscultation Cardiovascular: RRR, no murmur, no edema Heart Sounds: normal S1 and normal S2; no murmur Vessels: normal peripheral pulses Gastrointestinal (Abdomen): normal bowel sounds, soft, nontender, no hepatosplenomegaly Musculoskeletal: no cyanosis or clubbing, extremities motor strength 5/5 Skin: no rashes, warm and dry Neurologic: patellar DTR's 2+ bilat, sensation intact and PERRL, EOMI, accommodation nl, no face palsy, no dysarthria Psychiatric: A+Ox3, euthymic affect Lymphatic: no cervical or axillary lymphadenopathy Results & Data Laboratory Results Microbiology 05/23/18 14:24 Urine,Clean Catch Urine Culture - Final Escherichia coli 05/23/18 18:23 Blood Blood Culture - Preliminary No growth to date. 05/23/18 18:16 Blood Blood Culture - Preliminary No growth to date. Laboratory Results - last 24 hr 05/25/18 05/25/18 06:15 06:15 WBC 10.99 H RBC 3.68 L Hgb 11.2 L Hct 32.6 L MCV 88.6 MCH 30.4 MCHC 34.4 RDW Std Deviation 45.2 RDW Coeff of Karoline 13.7 Plt Count 220 MPV 10.7 H Immature Gran % (Auto) 0.5 Neut % (Auto) 77.4 Lymph % (Auto) 12.6 [place] % (Auto) 9.2 Eos % (Auto) 0.2 Baso % (Auto) 0.1 Immature Gran # (Auto) 0.06 H Neut # (Auto) 8.50 H Lymph # (Auto) 1.39 [place] # (Auto) 1.01 H Eos # (Auto) 0.02 Baso # (Auto) 0.01 Sodium 138 Potassium 4.6 D Chloride 112 H Carbon Dioxide 20 L Anion Gap 6.0 BUN 7 Creatinine 0.77 Est Cr Clr Drug Dosing 122.8 Est GFR ( Amer) 129.7 Est GFR (Non-Af Amer) 111.9 BUN/Creatinine Ratio 9.7 L Glucose 95 Calcium 8.5 Magnesium 1.8 Medications Administered Current Inpatient Medications Acetaminophen (Tylenol) 650 mg PO Q4H PRN PRN Reason: pain/fever Stop: 06/22/18 21:00 Last Admin: 05/24/18 06:44 Dose: 650 mg Potassium Chloride 40 meq/ (Sodium Chloride) 1,020 mls @ 125 mls/hr IV .Q8H10M [facility] Stop: 06/22/18 21:59 Last Admin: 05/25/18 14:38 Dose: 125 mls/hr Acetaminophen (Ofirmev) 1,000 mg in 100 mls @ 400 mls/hr IV Q8H [facility] Stop: 06/23/18 19:59 Last Infusion: 05/25/18 12:31 Dose: Infused Pantoprazole Sodium 40 mg/ (Syringe) 10 mls @ 5 mls/min IV DAILY@1100 [facility] Stop: 06/23/18 12:59 Last Admin: 05/25/18 11:06 Dose: 5 mls/min Ceftriaxone Sodium 2,000 mg/ (Dextrose) 70 mls @ 140 mls/hr IV Q24H [facility]; Protocol Stop: 06/04/18 09:59 Last Infusion: 05/25/18 11:38 Dose: Infused Ketorolac Tromethamine (Toradol) 15 mg IV Q6H PRN PRN Reason: Pain Stop: 05/28/18 21:57 Last Admin: 05/24/18 14:33 Dose: 15 mg Morphine Sulfate (Morphine Sulfate) 2 mg IV Q4H PRN PRN Reason: Pain Stop: 06/07/18 14:42 Last Admin: 05/25/18 02:03 Dose: 2 mg Morphine Sulfate (Morphine Sulfate) 4 mg IV Q4H PRN PRN Reason: Severe Pain Stop: 06/07/18 14:42 Last Admin: 05/24/18 14:58 Dose: 4 mg Ondansetron HCl (Zofran) 4 mg IV Q4H PRN PRN Reason: Nausea Stop: 06/22/18 21:00
[2018-05-25] MEDS: ACETAMINOPHEN 325 MG TAB PO PRN (18:10)
[2018-05-26] MEDS: KETOROLAC TROMETHAMINE 15 MG/ML VIAL IV PRN ×2 (00:49→18:53)
[2018-05-26] MEDS: ACETAMINOPHEN 1,000 MG/100 ML VIAL IV SCH ×3 (03:47→21:23)
[2018-05-26] MEDS: MoRPHine SULFATE 4 MG/ML 1 ML CARP\\VIAL IV PRN ×2 (03:54→23:27)
[2018-05-26] MEDS: cefTRIAXone SODIUM 2,000 MG in DEXTROSE 5% 50 ML IV SCH (10:22)
[2018-05-26] MEDS: PANTOprazole 40 MG in SYRINGE 0 ML IV SCH (10:22)
--- NOTE | 2018-05-26 12:01 | Hospitalist Progress Note ---
Date of Service May 26, 2018 Assessment & Plan (1) Pyelonephritis: Right pyelo diagnosed with positive urine and seen on CT a/p on 05/23. patient getting better every day, still very weak and poor appetite fever last night at 20:00, hoping no fever through tomorrow morning will d/c to home at that point pain controlled with Morphine, will try Oxycodone PRN so she has something to go home on urine culture grew E coli, sensitive to Rocephin continue Rocephin q12 stop Levaquin stop fluids want patient to be afebrile for 24 hours prior to discharge will change to PO cephalosporin prior to discharge complete 14 days total hopeful for discharge tomorrow morning, will go home with parents (2) Sepsis: due to pyelonephritis leukocytosis and febrile, tachycardia follow up blood cultures - no growth no evidence of end organ damage or shock sepsis resolved (3) Hypomagnesemia: resolved, 1.8 on 05/25 after replacement (4) Anemia: Hb dropped to 9 from 12, likely dilutional as there is no evidence of bleeding up to 11 on 05/25, no further need to follow (5) DVT prophylaxis: SCDs - Low risk patient (6) Labral tear of hip joint: Repair done ~2 months ago with a post-operative Staph infection, now resolved. Continues to take ibuprofen and naproxen 1-2 times a day. - No inpatient needs Subjective patient feeling a little better today, just feels exhausted muscles are weak, needs help showering had a fever last night around 1999, nothing since pain and fever and chills tend to hit quickly, but much less frequently no labs today she is eating a little bit parents asked about school, I am recommending that she takes off a few days this week goal is to discharge tomorrow as long as she does not have a fever through tomorrow morning Review of Systems All systems reviewed & are unremarkable except as noted in HPI & below Constitutional: + fever, + chills, + sweats, + body aches, + fatigue, + malaise and + weakness Genitourinary (Female): + flank pain (right side) Physical Exam 2 Vital Signs (Past 24 Hours): Last Vital Signs Temp 37.1 C 05/26/18 07:44 Pulse 105 H 05/26/18 07:44 Resp 16 05/26/18 07:44 BP 110/76 05/26/18 07:44 Pulse Ox 97 05/26/18 07:44 Constitutional: WD/WN, vitals as above Eyes: PERRL, conjunctivae normal, anicteric sclerae ENMT: external ear and nose normal, oropharynx normal Neck: trachea midline, no thyromegaly Respiratory: normal respiratory effort, lungs clear to auscultation Cardiovascular: RRR, no murmur, no edema Rate/Rhythm: regular rhythm Heart Sounds: normal S1 and normal S2; no murmur Vessels: normal peripheral pulses Gastrointestinal (Abdomen): normal bowel sounds, soft, nontender, no hepatosplenomegaly Musculoskeletal: no cyanosis or clubbing, extremities motor strength 5/5 Skin: no rashes, warm and dry Neurologic: patellar DTR's 2+ bilat, sensation intact and PERRL, EOMI, accommodation nl, no face palsy, no dysarthria Psychiatric: A+Ox3, euthymic affect Lymphatic: no cervical or axillary lymphadenopathy Results & Data Medications Administered Current Inpatient Medications Acetaminophen (Tylenol) 650 mg PO Q4H PRN PRN Reason: pain/fever Stop: 06/22/18 21:00 Last Admin: 05/25/18 18:10 Dose: 650 mg Acetaminophen (Ofirmev) 1,000 mg in 100 mls @ 400 mls/hr IV Q8H [facility] Stop: 06/23/18 19:59 Last Infusion: 05/26/18 04:51 Dose: Infused Pantoprazole Sodium 40 mg/ (Syringe) 10 mls @ 5 mls/min IV DAILY@1100 [facility] Stop: 06/23/18 12:59 Last Admin: 05/26/18 10:22 Dose: 5 mls/min Ceftriaxone Sodium 2,000 mg/ (Dextrose) 70 mls @ 140 mls/hr IV Q24H [facility]; Protocol Stop: 06/04/18 09:59 Last Infusion: 05/26/18 11:00 Dose: Infused Ketorolac Tromethamine (Toradol) 15 mg IV Q6H PRN PRN Reason: Pain Stop: 05/28/18 21:57 Last Admin: 05/26/18 00:49 Dose: 15 mg Morphine Sulfate (Morphine Sulfate) 2 mg IV Q4H PRN PRN Reason: Pain Stop: 06/07/18 14:42 Last Admin: 05/26/18 03:54 Dose: 2 mg Morphine Sulfate (Morphine Sulfate) 4 mg IV Q4H PRN PRN Reason: Severe Pain Stop: 06/07/18 14:42 Last Admin: 05/25/18 16:35 Dose: 4 mg Ondansetron HCl (Zofran) 4 mg IV Q4H PRN PRN Reason: Nausea Stop: 06/22/18 21:00
[2018-05-26] MEDS ORDERED: POLYETHYLENE (MIRALAX) 17 GM PACK PO PRN (12:30)
[2018-05-27] MEDS: ACETAMINOPHEN 1,000 MG/100 ML VIAL IV SCH (03:58)
--- NOTE | 2018-05-27 09:01 | Discharge Summary ---
Date of Service May 27, 2018 Admission HPI Per Admitting Provider 17yo F w/ no significant PMH who presents with pyelonephritis. Patient reports that she initially noted right flank & back pain on Monday. She also had some mild UTI symptoms at that time, but she has had quite a few UTIs, and didn't think much of it. However, on Monday, she also had a fever to 101, felt achy, stiff, and also had some nausea and vomiting. The UTI symptoms got worse as well on Monday. In the ED, she initially had a pulse of 130 which improved with IV fluids and Tylenol. Admission Exam Per Admitting Provider Constitutional: WD/WN, vitals as above Eyes: EOM intact bilaterally; no conjunctival abnormality ENMT: external ear and nose normal, oropharynx normal Neck: trachea midline, no thyromegaly normal visual inspection Respiratory: normal respiratory effort, lungs clear to auscultation no respiratory distress Cardiovascular: Rate/Rhythm: + tachycardic Heart Sounds: normal S1 and normal S2 Extremities: no edema Gastrointestinal (Abdomen): Inspection/Auscultation: abdomen normal to inspection; abdomen not distended Musculoskeletal: no cyanosis or clubbing, extremities motor strength 5/5 Skin: no rashes, warm and dry Neurologic: moves all extremities and awake Psychiatric: Orientation: alert, oriented to person and cooperative Principal Diagnosis Right pyelonephritis Discharge Exam Constitutional WD/WN, vitals as above Eyes PERRL, conjunctivae normal, anicteric sclerae ENMT external ear and nose normal, oropharynx normal Neck trachea midline, no thyromegaly Respiratory normal respiratory effort, lungs clear to auscultation Cardiovascular RRR, no murmur, no edema Heart Sounds: normal S1 and normal S2; no murmur Vessels: normal peripheral pulses Gastrointestinal (Abdomen) normal bowel sounds, soft, nontender, no hepatosplenomegaly Musculoskeletal no cyanosis or clubbing, extremities motor strength 5/5 Skin no rashes, warm and dry Neurologic patellar DTR's 2+ bilat, sensation intact and PERRL, EOMI, accommodation nl, no face palsy, no dysarthria Psychiatric A+Ox3, euthymic affect Lymphatic no cervical or axillary lymphadenopathy Discharge Data Allergies Allergy/AdvReac Type Severity Reaction Status Date / Time No Known Allergies Allergy Unverified 05/23/18 13:27 Consultations 05/23/18 18:19 ED Decision to Admit Stat Ordered Studies 05/23/18 14:09 US gallbladder Stat 05/23/18 16:43 CT abd pelvis IV con only Stat CT angio chest PE protocol Stat Hospital Course (1) Pyelonephritis: Right pyelo diagnosed with positive urine and seen on CT a/p on 05/23. patient getting better every day, more strength and better appetite past 24 hours no fever for almost 36 hours urine culture grew E coli, sensitive to Rocephin treated with Rocephin 1000mg IV q12 for 4 days will d/c to home on Keflex 500mg q8 for 10 more days get rest, stay well hydrated use Percocet as needed for ongoing right flank pain, if pain not severe just use Tylenol or Motrin will go home with her parents to rest for three days follow up with [facility] on 05/30 at 10:30 can return to classes on 05/31 (2) Sepsis: due to pyelonephritis leukocytosis and febrile, tachycardia follow up blood cultures - no growth no evidence of end organ damage or shock sepsis resolved after 48 hours (3) Hypomagnesemia: resolved, 1.8 on 05/25 after replacement (4) Anemia: Hb dropped to 9 from 12, likely dilutional as there is no evidence of bleeding up to 11 on 05/25, no further need to follow (5) DVT prophylaxis: SCDs - Low risk patient (6) Labral tear of hip joint: Repair done ~2 months ago with a post-operative Staph infection, now resolved. Continues to take ibuprofen and naproxen 1-2 times a day. - No inpatient needs Total Time Total Time Spent Total Time Spent (In Minutes): 35 minutes Total Time Includes: Examination of the Patient, Discharge Planning, Medication Reconciliation and Other (discussion with patient's parents) Discharge Plan Discharge Items Patient Disposition: Home - Self-Care Reason For Visit: PYELONEPHRITIS Discharge Diagnosis: Pyelonephritis E coli UTI Condition: Good Discharge Goals: Improve disease control, Improve function and Increase independence Activity: Per 'Additional Instructions' section Lifting: Gradually increase as tolerated Exercise/Sports: Gradually increase as tolerated Driving/Machine Use: No limitations Non-emergency contact: Primary Care Provider Call non-emergency contact if: you have any medication questions, your symptoms worsen, your pain is not controlled and you have a fever Follow-up/Referrals: Galindo Mo MD [Resident] - 05/30/18 10:30 am (An appointment has been made on your behalf with [facility]. If you need to change the appointment please call the office directly. Thank you! ) Diet: Regular Addtl Provider Instructions: Medications: - KEFLEX: antibiotic for UTI, take 500mg every 8 hours for 10 more days - PERCOCET: take as needed for pain, every 8 hours Pyelonephritis on the right caused sepsis, severe pain, high grade fevers urine culture grew E coli, sensitive to Rocephin which was started at admission completed 4 days of treatment here, need 10 more days get rest, stay well hydrated, gradually increase activity as tolerated use Percocet as needed for any right flank pain can continue to use Ibuprofen and / or Tylenol if pain is not severe no fevers for over 24 hours if you do have fever at home use Tylenol 650mg every 4 hours can also use Ibuprofen 600mg every 6 hours FOLLOW UP - Dr. Mo with [facility], 05/30 at 10:30 Prescriptions: New cephalexin [Keflex] 500 mg capsule 500 mg PO Q8H 10 Days Qty: 30 RF: 0 oxycodone-acetaminophen [Percocet] 5-325 mg tablet 1 tab PO Q8H PRN (Reason: pain) Qty: 20 RF: 0 Continue norgestimate-ethinyl estradiol [Sprintec (28)] 0.25-35 mg-mcg Tablet 1 tab PO DAILY RF: 0 ibuprofen 200 mg Tablet 200 mg PO QID PRN (Reason: Pain) RF: 0 naproxen sodium 220 mg Capsule 220 mg PO BID PRN (Reason: HIP PAIN) RF: 0 lisdexamfetamine [Vyvanse] 20 mg Tablet,Chewable 20 mg PO QAM RF: 0 Stand-Alone Forms: [facility], Work/School Release (Inpt) Discharge Orders: Discharge Order (Routine); Ordered 05/27/18 Ordered By: Daron Wilburn Admission Data Admit Date/Time: 05/23/18 18:34 Attending Provider: Daron Wilburn Admit Provider: Tino Lemus Primary Care Provider: PCP,NO Other Providers: Tino Lemus Service: Medical
== END 2018-05-27 10:00 | disposition home or self-care (01) | DRG 872 ==
LOC: ED 12:56 → SUATTDRO 18:34 → 4E 18:34

== ENCOUNTER 2019-02-18 06:44 | Inpatient (IN) ==
[2019-02-18] MEDS ORDERED: MAGNESIUM SULFATE / D5W 1 GM/100 ML BAG IV ONE (07:12)
[2019-02-18] MEDS ORDERED: DiphenhydrAMINE HCL 50 MG/ML VIAL IV STA (07:12)
[2019-02-18] MEDS ORDERED: KETOROLAC 30 MG/ML VIAL IV STA (07:12)
[2019-02-18] MEDS ORDERED: PROCHLORPERAZINE 1 ML IV ONE (07:12)
[2019-02-18] MEDS ORDERED: cefTRIAXone SODIUM 2,000 MG/70 ML BAG IV STA (07:14)
[2019-02-18] MEDS ORDERED: SODIUM CHLORIDE 0.9% 1000ML 1,000 ML IV ONE (07:14)
[2019-02-18 07:20] LABS: Appearance Urine Cloudy (Clear); Bacteria Urine Automated Negative (Negative); Bilirubin Urine Negative (Negative); Blood Urine 2+ (Negative); Color Urine Dark Yellow; Epithelial Cell Urine Auto >30 /lpf (0-5); Glucose Urine UA Negative (Negative); Ketones Urine Negative (Negative); Leukocyte Esterase Urine Trace (Negative); Nitrite Urine Negative (Negative); Protein Urine Negative (Negative); Specific Gravity Urine 1.021 (1.000-1.030); Urobilinogen Urine Negative (Negative); pH Urine 7.5 (4.5-7.5)
[2019-02-18 07:25] LABS: Pregnancy Test, Urine Negative (Negative)
[2019-02-18 07:38] LABS: Basophils # (auto) 0.01 K/uL (0-0.2); Basophils % (auto) 0.2 %; Eosinophils # (auto) 0.18 K/uL (0-0.5); Eosinophils % (auto) 3.1 %; Hematocrit (blood only) 34.2 % (37-47); Hemoglobin 11.8 g/dL (12.0-16.0); Immature Granulocytes # (auto) 0.01 K/uL (0.00-0.02); Immature Granulocytes % (auto) 0.2 %; Lymphocytes # (auto) 0.57 K/uL (1.2-3.4); Lymphocytes % (auto) 9.8 %; Mean Corpuscular Hgb Conc 34.5 g/dL (32-36); Mean Platelet Volume 10.7 fL (7.4-10.4); Monocytes # (auto) 0.33 K/uL (0.11-0.59); Monocytes % (auto) 5.7 %; Neutrophils # (auto) 4.72 K/uL (1.4-6.5); Platelet Count 282 K/uL (130-400); RDW Coefficient of Variation 13.2 % (11.5-14.5); Red Blood Count 4.07 M/uL (4.2-5.4); White Blood Count 5.82 K/uL (4.8-10.8)
[2019-02-18 07:53] LABS: Albumin Level 3.3 gm/dl (3.4-5.0); BUN Creatinine Ratio 7.3 (10-20); Calcium 9.6 mg/dl (8.5-10.1); Creatinine Clr Calc Pharmacy 110.3 ml/min; Est GFR (African American) 114.3; Est GFR (Non-African American) 98.6; Potassium 3.8 mmol/L (3.5-5.1)
[2019-02-18 07:56] LABS: Albumin Globulin Ratio 0.8 (0.9-2); Bilirubin,Total 0.3 mg/dl (0.2-1); Globulin 4.3 gm/dl (2.5-4.0); Total Protein 7.6 gm/dl (6.4-8.2)
--- NOTE | 2019-02-18 08:48 | XRay Report ---
XR KUB/Abdomen 1 view CLINICAL HISTORY: Abdominal pain COMPARISON STUDY: No previous studies for comparison. FINDINGS: There are mildly dilated central small bowel loops. There is no pathologic colonic dilatati on. There is a mild scoliosis. There are no calcifications suspicious for renal calculi. IMPRESSION: Nonspecific bowel gas pattern, with mildly dilated central abdominal small bowel loops Electronically signed by: Adeel Tatum M.D. 02/18/2019 8:47 AM
--- NOTE | 2019-02-18 08:50 | Ultrasound Report ---
US renal/blad retro comp HISTORY: 18 years-old Female Pt c/o kidney pain mild bilateral flank pain COMPARISON: CT abdomen and pelvis 02/14/2019 TECHNIQUE: Multiple real-time sonographic images of the kidneys and urinary bladder were obtained ass essing grayscale appearance and color flow FINDINGS: Right kidney measures 12.0 x 5.1 x 6.6 cm and demonstrates no renal calculi, hydronephrosis or suspic ious mass lesion. Left kidney measures 14.1 x 5.9 x 8.5 cm and is also unremarkable. Unremarkable uri nary bladder with bilateral ureteral jets noted. IMPRESSION: Unremarkable sonographic appearance of the kidneys and urinary bladder. The above report was generated using voice recognition software. It may contain grammatical, syntax o r spelling errors. Electronically signed by: Galindo Palacio M.D. 02/18/2019 8:49 AM
--- NOTE | 2019-02-18 10:13 | History & Physical Report ---
Date of Service February 18, 2019 Assessment & Plan (1) Pyelonephritis: - Failure of outpatient Cefdinir (started 02/14) and Bactrim therapy (started 02/16, unclear if pt. tolerated any doses due to N/V); presented with fever/chills, severe nausea/vomiting and flank/abd pain. - This is her third episode of pyelonephritis this year -- May 2018, Summer 2018 and Jan-Feb 2019. - Previous UC 02/14 positive for E. coli, sensitive to sulfas and cephalosporins but resistant to ampicillin and Unasyn; repeat u/a this morning showed +2 blood, +leuk est but neg for bacteria. 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 - Tylenol prn mild pain, Toradol prn mod to severe pain; Zofran and Compazine prn nausea/vomiting. - IV fluids at 100 cc/hr; continue NPO except meds - advance diet if symptoms are improving. (2) Ureteral duplication: - Her mother reported that pt. was evaluated by urology this summer in [place] and had "two ureters bilaterally". 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 - Will consult urology for evaluation - may be contributing to reflux leading to frequent pyelo infections. Consider urogram if recommended by urology. (3) Elevated lipase: - Lipase level was 444 on admission and may be nonspecific and related to nausea/vomiting; will trend level on 02/19/19. - Recent CT A/P on 02/14 was negative. (4) Anemia: - Likely dilutional related to IV fluids. - Continue to monitor CBC daily. (5) Labral tear of hip joint: - S/p repair leading to post op Staph infection. - No acute issues noted, will monitor. (6) Uses control: - Continue medication as prescribed. (7) ADHD (attention deficit hyperactivity disorder): - Holding home Vyvanse as inpatient. (8) GERD (gastroesophageal reflux disease): - Continue PPI 15 mg PO daily prn. (9) DVT prophylaxis: - SCDs; encourage ambulation. Dispo: Med/surg for treatment of pyelonephritis. History of Present Illness Chief Complaint: Nausea/Vomiting Primary Care Provider: NO PCP Ms. Gamble is a 18 year old college student who presented with failure of outpatient oral antibiotics for treatment of UTI. Pt. presented to the ER on 02/14 with symptoms consistent with pyelonephritis -- she was discharged home with instructions to complete a course of Cefdinir PO. UC from 02/14 was positive for E. coli. She returned to the ER on 02/16/19 with persistent symptoms, including increased flank/abd pain. Pt. was prescribed Bactrim and discharged to home. She presented to the ER this morning with worsening flank/abd pain. She has severe nausea/vomiting leading to inability to tolerate PO abx. Pt. has had fever/chills at home along with weakness/fatigue & headache. Complains of urinary frequency but denies hematuria, dysuria, foul smelling urine. She has had very minimal PO intake, including fluids, due to N/V. Denies chest pain, SOB, LE edema, diarrhea or constipation. ER course: U/a showed +2 blood, trace leuk est, 5-10 WBC but negative for bacteria. She was tachycardic and mildly hypotensive but remained afebrile. Pt. received Ceftriaxone 2 gm IV, Toradol 30 mg IV, Compazine IV and IV fluid bolus. She will be admitted for treatment of pyelonephritis with IV abx. Allergies Allergy/AdvReac Type Severity Reaction Status Date / Time No Known Allergies Allergy Unverified 02/16/19 14:33 Home Medications Home Medications Medication Instructions Recorded Confirmed Type Vyvanse 20 mg PO QAM 05/23/18 02/18/19 History ibuprofen 200 mg PO QID PRN 05/23/18 02/18/19 History norgestimate-ethinyl estradiol 1 tab PO DAILY 05/23/18 02/18/19 History [Sprintec (28)] cefdinir 300 mg PO BID 10 Days #20 cap 02/14/19 02/18/19 Rx lansoprazole [Prevacid 24Hr] 15 mg PO QAM PRN 02/14/19 02/18/19 History ondansetron 4 mg PO Q6H PRN #10 tab 02/14/19 02/18/19 Rx tramadol [Ultram] 50 mg PO Q4H PRN #15 tab 02/14/19 02/18/19 Rx sulfamethoxazole-trimethoprim 160 mg PO Q12H #20 tab 02/16/19 02/18/19 Rx [Bactrim DS] Past Med/Surg History Medical History Pyelonephritis (Acute) Labral tear of hip joint UTI (urinary tract infection) Surgical History History of tonsillectomy Family History Brother Asthma Social History Preferred Language: Lao Communication Ability: Effective Nuclear Medicine Technologist Required: No Beliefs That Will Affect Care: None marital status: Single Current Living Situation: Other Current Living Situation Comment: apartment w/ 4 roommates current occupational status: student Other Information That Helps Us Care for You: No Feels Safe at Home: Yes Safety Concerns: Feels Safe At This Time Smoking Status: Never smoker Hx Alcohol Use: No Hx Substance Use: No Review of Systems Review of Systems: All systems reviewed & are unremarkable except as noted in HPI & below Constitutional: + fever, + chills, + fatigue, + weakness and + anorexia Respiratory: no cough, no dyspnea, no dyspnea on exertion and no wheezing Cardiovascular: no chest pain, no palpitations and no edema Gastrointestinal: + abdominal pain, + nausea and + vomiting; no constipation and no diarrhea/loose stools Genitourinary: + urinary frequency and + flank pain; no dysuria, no decreased urination and no hematuria Musculoskeletal: + back pain; no joint pain Integumentary: no non-healing lesions Neurologic: + headache(s) Allergy / Immunological: no rash Physical Exam Physical Exam: General: Resting comfortably, no acute distress. HEENT: NC/AT; PERRLA with EOMI; Cleary conjunctiva, MMM. No erythema of posterior pharynx Neck: Supple and nontender Cardiac: RRR Lungs: CTA bilaterally Abdomen: Bowel normoactive X 4; Nontender to palpation, no CVA tenderness noted. Extremities: Warm. No edema present Neuro: No focal weakness Skin: No rash Results & Data Vital Signs (Past 12 Hours) Vital Signs Temp Pulse Pulse Resp BP BP Pulse Ox 02/18/19 09:11 64 16 94/56 L 97 02/18/19 07:48 74 18 116/67 97 02/18/19 07:34 97 02/18/19 06:49 37.2 C 103 H 16 104/68 97 Laboratory Results 02/18/19 02/18/19 02/18/19 Range/Units 07:29 07:29 07:00 WBC 5.82 (4.8-10.8) K/uL RBC 4.07 L (4.2-5.4) M/uL Hgb 11.8 L (12.0-16.0) g/dL Hct 34.2 L (37-47) % MCV 84.0 (80-100) fL MCH 29.0 (25-34) pg MCHC 34.5 (32-36) g/dL RDW Std Deviation 40.0 (36.4-46.3) fL RDW Coeff of Karoline 13.2 (11.5-14.5) % Plt Count 282 (130-400) K/uL MPV 10.7 H (7.4-10.4) fL Immature Gran % (Auto) 0.2 % Neut % (Auto) 81.0 % Lymph % (Auto) 9.8 % [place] % (Auto) 5.7 % Eos % (Auto) 3.1 % Baso % (Auto) 0.2 % Immature Gran # (Auto) 0.01 (0.00-0.02) K/uL Neut # (Auto) 4.72 (1.4-6.5) K/uL Lymph # (Auto) 0.57 L (1.2-3.4) K/uL [place] # (Auto) 0.33 (0.11-0.59) K/uL Eos # (Auto) 0.18 (0-0.5) K/uL Baso # (Auto) 0.01 (0-0.2) K/uL Sodium 137 (136-145) mmol/L Potassium 3.8 (3.5-5.1) mmol/L Chloride 105 (98-107) mmol/L Carbon Dioxide 25 (21-32) mmol/L Anion Gap 6.0 (3-11) BUN 6 L (7-18) mg/dl Creatinine 0.85 (0.6-1.2) mg/dl Est Cr Clr Drug Dosing 110.3 ml/min Est GFR ( Amer) 114.3 Est GFR (Non-Af Amer) 98.6 BUN/Creatinine Ratio 7.3 L (10-20) Glucose 114 H (70-99) mg/dl Calcium 9.6 (8.5-10.1) mg/dl Total Bilirubin 0.3 (0.2-1) mg/dl AST 15 (15-37) U/L ALT 17 (12-78) U/L Alkaline Phosphatase 48 (45-117) U/L Total Protein 7.6 (6.4-8.2) gm/dl Albumin 3.3 L (3.4-5.0) gm/dl Globulin 4.3 H (2.5-4.0) gm/dl Albumin/Globulin Ratio 0.8 L (0.9-2) Lipase 444 H (73-393) U/L Urine Color Dark Yellow Urine Appearance Cloudy A (Clear) Urine pH 7.5 (4.5-7.5) Ur Specific [place]iles 1.021 (1.000-1.030) Urine Protein Negative (Negative) Urine Glucose (UA) Negative (Negative) Urine Ketones Negative (Negative) Urine Blood 2+ H (Negative) Urine Nitrite Negative (Negative) Urine Bilirubin Negative (Negative) Urine Urobilinogen Negative (Negative) Ur Leukocyte Esterase Trace H (Negative) Urine WBC (Auto) 5-10 H (0-5) /hpf Urine RBC (Auto) 10-30 H (0-4) /hpf U Hyaline Cast (Auto) 1-5 (0-5) /lpf U Epithel Cells (Auto) >30 H (0-5) /lpf Urine Bacteria (Auto) Negative (Negative) Urine Test (Negative) 02/18/19 Range/Units 07:00 WBC (4.8-10.8) K/uL RBC (4.2-5.4) M/uL Hgb (12.0-16.0) g/dL Hct (37-47) % MCV (80-100) fL MCH (25-34) pg MCHC (32-36) g/dL RDW Std Deviation (36.4-46.3) fL RDW Coeff of Karoline (11.5-14.5) % Plt Count (130-400) K/uL MPV (7.4-10.4) fL Immature Gran % (Auto) % Neut % (Auto) % Lymph % (Auto) % [place] % (Auto) % Eos % (Auto) % Baso % (Auto) % Immature Gran # (Auto) (0.00-0.02) K/uL Neut # (Auto) (1.4-6.5) K/uL Lymph # (Auto) (1.2-3.4) K/uL [place] # (Auto) (0.11-0.59) K/uL Eos # (Auto) (0-0.5) K/uL Baso # (Auto) (0-0.2) K/uL Sodium (136-145) mmol/L Potassium (3.5-5.1) mmol/L Chloride (98-107) mmol/L Carbon Dioxide (21-32) mmol/L Anion Gap (3-11) BUN (7-18) mg/dl Creatinine (0.6-1.2) mg/dl Est Cr Clr Drug Dosing ml/min Est GFR ( Amer) Est GFR (Non-Af Amer) BUN/Creatinine Ratio (10-20) Glucose (70-99) mg/dl Calcium (8.5-10.1) mg/dl Total Bilirubin (0.2-1) mg/dl AST (15-37) U/L ALT (12-78) U/L Alkaline Phosphatase (45-117) U/L Total Protein (6.4-8.2) gm/dl Albumin (3.4-5.0) gm/dl Globulin (2.5-4.0) gm/dl Albumin/Globulin Ratio (0.9-2) Lipase (73-393) U/L Urine Color Urine Appearance (Clear) Urine pH (4.5-7.5) Ur Specific Niles (1.000-1.030) Urine Protein (Negative) Urine Glucose (UA) (Negative) Urine Ketones (Negative) Urine Blood (Negative) Urine Nitrite (Negative) Urine Bilirubin (Negative) Urine Urobilinogen (Negative) Ur Leukocyte Esterase (Negative) Urine WBC (Auto) (0-5) /hpf Urine RBC (Auto) (0-4) /hpf U Hyaline Cast (Auto) (0-5) /lpf U Epithel Cells (Auto) (0-5) /lpf Urine Bacteria (Auto) (Negative) Urine Test Negative (Negative) Code Status & VTE Plan Code Status FULL CODE VTE Prophylaxis Plan VTE Prophylaxis will be ordered: Yes Supervising Physician Co-Signing Physician Notes PA Supervision Note: I personally saw and examined the patient. I verified all ramirez points and agree with SABA Diego with the following exceptions and/or additions: Patient here with persistent nausea vomiting/right flank pain, and inability to keep down p.o. antibiotics for acute pyelonephritis History and ROS reviewed as above Vitals reviewed Gen: AAOx3, NAD HEENT: Anicteric sclerae, EOMI CV: RRR no mgr nl S1S2 Pulm: CTAB no wcr Abd: +BS soft positive right CVA tenderness, and mild right lower quadrant abdominal pain without guarding or rebound tenderness, ND no masses or hernias Ext: No edema, 2+ DP pulses Skin: No rashes, warm/dry Neuro: Full strength throughout 18-year-old female here with acute pyelonephritis with failure of outpatient antibiotics -Admit for IV fluids, antiemetics, and continued IV ceftriaxone -When I saw her in the evening, she was already feeling much improved and her diet was advanced to regular -Hopeful can be discharged to home tomorrow with p.o. antibiotics for total of 14-day course -Appreciate urology input PG Care Time/CCT Total # of Minutes Spent Total Time Spent with Patient: Total time spent is greater than 50% in coordination of care (as documented) at patient's floor/unit and/or counseling patient: (1) Anemia Anemia type: unspecified type Qualified Code(s): D64.9 - Anemia, unspecified
[2019-02-18] MEDS ORDERED: PROCHLORPERAZINE 10 MG in SYRINGE 8 ML IV PRN (11:04)
[2019-02-18] MEDS ORDERED: ONDANSETRON INJ 2 MG/ML 2 ML VIAL IV PRN (11:04)
[2019-02-18] MEDS ORDERED: ACETAMINOPHEN 325 MG TAB PO PRN (11:04)
[2019-02-18] MEDS: SODIUM CHLORIDE 0.9% 1000ML 1,000 ML IV SCH ×2 (11:38→21:32)
[2019-02-18] MEDS ORDERED: PANTOprazole 40 MG TAB PO PRN (11:45)
--- NOTE | 2019-02-18 15:28 | Emergency Department Note ---
Entered by Jad Jauregui acting as a scribe for History of Present Illness General Chief complaint: Urinary Symptoms Stated complaint: KIDNEY INFECTION,VOMITING,INCREASED FEVER Time Seen by Provider: 02/18/19 06:46 Source: patient History of Present Illness Provider complaint: Urinary symptoms Onset (ago): day(s) (Couple of days ) Location: abdomen Severity: similar to prior episodes Pain Consistency: + constant and + intermittent Maximum Pain Intensity: 7 Current Pain Intensity: 7 Associated symptoms: + fever/chills, + headaches and + nausea/vomiting The patient is a 18 year old female who presents to the Emergency Room with complaints of intermittent urinary symptoms that started a couple of days ago. The patient states she has been here twice since the onset of her symptoms and have been on 2 different antibiotics after the first one did not cover the E.Coli that the culture grew out. The patient is currently on Bactrim and is also taking tramadol for pain. The patient recalls that her urinary symptoms consist of the frequent urge to void but not being able to and when she is able to she experiences a burning pain. The patient adds that she has a worsening frontal headache and intermittent fevers. She also endorses constant nausea and intermittent vomiting since waking up this morning. The patient has a history of UTIs and states she gets them frequently. The patient needed to be admitted in May of this year for a UTI that spread to her kidneys. 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 Home Medications Home Medications Medication Instructions Recorded Confirmed Type Vyvanse 20 mg PO QAM 05/23/18 02/18/19 History ibuprofen 200 mg PO QID PRN 05/23/18 02/18/19 History norgestimate-ethinyl estradiol 1 tab PO DAILY 05/23/18 02/18/19 History [Sprintec (28)] cefdinir 300 mg PO BID 10 Days #20 cap 02/14/19 02/18/19 Rx lansoprazole [Prevacid 24Hr] 15 mg PO QAM PRN 02/14/19 02/18/19 History ondansetron 4 mg PO Q6H PRN #10 tab 02/14/19 02/18/19 Rx tramadol [Ultram] 50 mg PO Q4H PRN #15 tab 02/14/19 02/18/19 Rx sulfamethoxazole-trimethoprim 160 mg PO Q12H #20 tab 02/16/19 02/18/19 Rx [Bactrim DS] Allergies Allergy/AdvReac Type Severity Reaction Status Date / Time No Known Allergies Allergy Unverified 02/16/19 14:33 Past Med/Surg History Medical History Pyelonephritis (Acute) Labral tear of hip joint UTI (urinary tract infection) Surgical History History of tonsillectomy Family History Brother Asthma Social History Preferred Language: Indonesian Communication Ability: Effective 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 and A total of 10 systems reviewed and were otherwise negative Physical Exam Vital Signs Vital Signs - 24 hr 02/18/19 07:48 02/18/19 09:11 Pulse Rate [Left Finger] 74 64 Respiratory Rate 18 16 Blood Pressure [Left Arm] 116/67 94/56 L Blood Pressure Mean [Left Arm] 83 68 Pulse Oximetry 97 97 Oxygen Delivery Method Room Air Room Air GENERAL: Awake, alert, well-appearing, in no distress HENT: Normocephalic, atraumatic. Oropharynx unremarkable. EYES: Normal conjunctiva. Sclera non-icteric. NECK: Supple. No nuchal rigidity. FROM. No masses. RESPIRATORY: Clear to auscultation. No wheezes. No rales. Normal respiratory effort. CARDIAC: Normal rate. Normal rhythm. No murmurs. No rubs. Extremities warm and well perfused. Pulses equal. No JVD. GI: Soft, non-distended. No tenderness to palpation. No rebound or guarding. No masses. RECTAL: Deferred. MUSCULOSKELETAL: Atraumatic. Chest examination reveals no tenderness. The back is symmetrical on inspection without obvious abnormality. There is no CVA tenderness to palpation. No joint edema. LOWER EXTREMITIES: Calves are equal size bilaterally and non-tender. No edema. No discoloration. NEURO: Normal sensorium. No sensory or motor deficits noted. Course 0703: Past medical records reviewed. The patient was evaluated in room B11B, and a complete history and physical examination were performed. I asked the patient if she would like me to call her mother and she did. The mother was on speaker phone throughout the entire evaluation. 0938: I spoke to Dr. Lehman [facility] Hospitalist about the patient's case. She agreed to accept the patient for further evaluation. 0945: I reevaluated the patient and she is resting in bed. I updated her with results and discussed the treatment plan. She agreed with the plan. Consultations Consultation #1: I spoke to Dr. Lehman [facility] Hospitalist about the patient's case. She agreed to accept the patient for further evaluation. Time: 09:38 Administered Medications Acetaminophen (Tylenol) 650 mg PO Q4H PRN PRN Reason: Mild Pain Stop: 03/20/19 11:03 Last Admin: 02/18/19 12:06 Dose: 650 mg Documented by: [id number] Sodium Chloride (Nss 1000ml) 1,000 mls @ 100 mls/hr IV .Q10H JAVIER Stop: 03/20/19 11:03 Last Admin: 02/19/19 06:09 Dose: 100 mls/hr Documented by: [id number] Infusion: 02/19/19 06:09 Dose: 100 mls/hr Documented by: [id number] Admin: 02/18/19 21:32 Dose: 100 mls/hr Documented by: [id number] Infusion: 02/18/19 21:32 Dose: 100 mls/hr Documented by: [id number] Admin: 02/18/19 11:38 Dose: 100 mls/hr Documented by: [id number] Ketorolac Tromethamine (Toradol) 30 mg IV Q6H PRN PRN Reason: Severe Pain Stop: 02/23/19 11:03 Last Admin: 02/19/19 06:44 Dose: 30 mg Documented by: [id number] Admin: 02/18/19 23:49 Dose: 30 mg Documented by: [id number] Discontinued Medications Diphenhydramine HCl (Benadryl) 25 mg IV NOW STA Stop: 02/18/19 07:13 Last Admin: 02/18/19 07:27 Dose: 25 mg Documented by: [id number] Diphenhydramine HCl (Benadryl) 25 mg IV NOW ONE Stop: 02/18/19 21:59 Last Admin: 02/18/19 22:13 Dose: 25 mg Documented by: [id number] Magnesium Sulfate/Dextrose (Magnesium Sulfate / D5w) 1 gm in 100 mls @ 100 mls/hr IV ONE ONE Stop: 02/18/19 08:11 Last Infusion: 02/18/19 08:40 Dose: 0 mls/hr Documented by: [id number] Admin: 02/18/19 07:46 Dose: 100 mls/hr Documented by: [id number] Ceftriaxone Sodium (Rocephin) 2,000 mg in 70 mls @ 140 mls/hr IV NOW STA Stop: 02/18/19 07:43 Last Infusion: 02/18/19 07:49 Dose: 0 mls/hr Documented by: [id number] Admin: 02/18/19 07:27 Dose: 140 mls/hr Documented by: [id number] Prochlorperazine (Compazine) 1 mls @ 1 mls/min IV ONE ONE Stop: 02/18/19 07:13 Last Admin: 02/18/19 07:26 Dose: 1 mls/min Documented by: [id number] Sodium Chloride (Nss 1000ml) 1,000 mls @ 999 mls/hr IV .Q1H1M ONE Stop: 02/18/19 08:14 Last Infusion: 02/18/19 08:08 Dose: 0 mls/hr Documented by: [id number] Admin: 02/18/19 07:27 Dose: 999 mls/hr Documented by: [id number] Ketorolac Tromethamine (Toradol) 30 mg IV NOW STA Stop: 02/18/19 07:13 Last Admin: 02/18/19 07:27 Dose: 30 mg Documented by: [id number] Miscellaneous (Order Awaiting Action) 1 ea N/A QS JAVIER Stop: 03/20/19 15:59 Last Admin: 02/18/19 16:31 Dose: Not Given Documented by: [id number] Zolpidem Tartrate (Ambien) 5 mg PO ONE ONE Stop: 02/19/19 00:37 Last Admin: 02/19/19 00:53 Dose: 5 mg Documented by: [id number] Medical Decision Making Differential Diagnosis Differential: UTI, Urethritis, Pyelonephritis, STI, Herpetic, Vaginitis, Hyperglycemia, Yeast, PID, Cystitis, Hemorrhagic Cystitis, amongst other pathologies entertained. Medical Records Attestation: I reviewed the patient's medical records. Home Medications Current Medication List: was personally reviewed by me Laboratory Data Attestation: I reviewed the patient's lab results. Result diagrams: 02/19/19 05:57 02/19/19 05:57 Lab Results 02/18/19 02/18/19 02/18/19 Range/Units 07:00 07:00 07:29 WBC 5.82 (4.8-10.8) K/uL RBC 4.07 L (4.2-5.4) M/uL Hgb 11.8 L (12.0-16.0) g/dL Hct 34.2 L (37-47) % MCV 84.0 (80-100) fL MCH 29.0 (25-34) pg MCHC 34.5 (32-36) g/dL RDW Std Deviation 40.0 (36.4-46.3) fL RDW Coeff of Karoline 13.2 (11.5-14.5) % Plt Count 282 (130-400) K/uL MPV 10.7 H (7.4-10.4) fL Immature Gran % (Auto) 0.2 % Neut % (Auto) 81.0 % Lymph % (Auto) 9.8 % [place] % (Auto) 5.7 % Eos % (Auto) 3.1 % Baso % (Auto) 0.2 % Immature Gran # (Auto) 0.01 (0.00-0.02) K/uL Neut # (Auto) 4.72 (1.4-6.5) K/uL Lymph # (Auto) 0.57 L (1.2-3.4) K/uL [place] # (Auto) 0.33 (0.11-0.59) K/uL Eos # (Auto) 0.18 (0-0.5) K/uL Baso # (Auto) 0.01 (0-0.2) K/uL Sodium (136-145) mmol/L Potassium (3.5-5.1) mmol/L Chloride (98-107) mmol/L Carbon Dioxide (21-32) mmol/L Anion Gap (3-11) BUN (7-18) mg/dl Creatinine (0.6-1.2) mg/dl Est Cr Clr Drug Dosing ml/min Est GFR ( Amer) Est GFR (Non-Af Amer) BUN/Creatinine Ratio (10-20) Glucose (70-99) mg/dl Calcium (8.5-10.1) mg/dl Total Bilirubin (0.2-1) mg/dl AST (15-37) U/L ALT (12-78) U/L Alkaline Phosphatase (45-117) U/L Total Protein (6.4-8.2) gm/dl Albumin (3.4-5.0) gm/dl Globulin (2.5-4.0) gm/dl Albumin/Globulin Ratio (0.9-2) Lipase (73-393) U/L Urine Color Dark Yellow Urine Appearance Cloudy A (Clear) Urine pH 7.5 (4.5-7.5) Ur Specific [place] 1.021 (1.000-1.030) Urine Protein Negative (Negative) Urine Glucose (UA) Negative (Negative) Urine Ketones Negative (Negative) Urine Blood 2+ H (Negative) Urine Nitrite Negative (Negative) Urine Bilirubin Negative (Negative) Urine Urobilinogen Negative (Negative) Ur Leukocyte Esterase Trace H (Negative) Urine WBC (Auto) 5-10 H (0-5) /hpf Urine RBC (Auto) 10-30 H (0-4) /hpf U Hyaline Cast (Auto) 1-5 (0-5) /lpf U Epithel Cells (Auto) >30 H (0-5) /lpf Urine Bacteria (Auto) Negative (Negative) Urine Test Negative (Negative) 02/18/19 Range/Units 07:29 WBC (4.8-10.8) K/uL RBC (4.2-5.4) M/uL Hgb (12.0-16.0) g/dL Hct (37-47) % MCV (80-100) fL MCH (25-34) pg MCHC (32-36) g/dL RDW Std Deviation (36.4-46.3) fL RDW Coeff of Karoline (11.5-14.5) % Plt Count (130-400) K/uL MPV (7.4-10.4) fL Immature Gran % (Auto) % Neut % (Auto) % Lymph % (Auto) % [place] % (Auto) % Eos % (Auto) % Baso % (Auto) % Immature Gran # (Auto) (0.00-0.02) K/uL Neut # (Auto) (1.4-6.5) K/uL Lymph # (Auto) (1.2-3.4) K/uL [place] # (Auto) (0.11-0.59) K/uL Eos # (Auto) (0-0.5) K/uL Baso # (Auto) (0-0.2) K/uL Sodium 137 (136-145) mmol/L Potassium 3.8 (3.5-5.1) mmol/L Chloride 105 (98-107) mmol/L Carbon Dioxide 25 (21-32) mmol/L Anion Gap 6.0 (3-11) BUN 6 L (7-18) mg/dl Creatinine 0.85 (0.6-1.2) mg/dl Est Cr Clr Drug Dosing 110.3 ml/min Est GFR ( Amer) 114.3 Est GFR (Non-Af Amer) 98.6 BUN/Creatinine Ratio 7.3 L (10-20) Glucose 114 H (70-99) mg/dl Calcium 9.6 (8.5-10.1) mg/dl Total Bilirubin 0.3 (0.2-1) mg/dl AST 15 (15-37) U/L ALT 17 (12-78) U/L Alkaline Phosphatase 48 (45-117) U/L Total Protein 7.6 (6.4-8.2) gm/dl Albumin 3.3 L (3.4-5.0) gm/dl Globulin 4.3 H (2.5-4.0) gm/dl Albumin/Globulin Ratio 0.8 L (0.9-2) Lipase 444 H (73-393) U/L Urine Color Urine Appearance (Clear) Urine pH (4.5-7.5) Ur Specific [place] (1.000-1.030) Urine Protein (Negative) Urine Glucose (UA) (Negative) Urine Ketones (Negative) Urine Blood (Negative) Urine Nitrite (Negative) Urine Bilirubin (Negative) Urine Urobilinogen (Negative) Ur Leukocyte Esterase (Negative) Urine WBC (Auto) (0-5) /hpf Urine RBC (Auto) (0-4) /hpf U Hyaline Cast (Auto) (0-5) /lpf U Epithel Cells (Auto) (0-5) /lpf Urine Bacteria (Auto) (Negative) Urine Test (Negative) Imaging Data Radiologist's Impression: Radiology results as stated below per my review and the radiologist's interpretation: XR KUB/Abdomen 1 view CLINICAL HISTORY: Abdominal pain COMPARISON STUDY: No previous studies for comparison. FINDINGS: There are mildly dilated central small bowel loops. There is no pathologic colonic dilatation. There is a mild scoliosis. There are no calcifications suspicious for renal calculi. IMPRESSION: Nonspecific bowel gas pattern, with mildly dilated central abdominal small bowel loops Electronically signed by: Adeel Tatum M.D. 02/18/2019 8:47 AM US renal/blad retro comp HISTORY: 18 years-old Female Pt c/o kidney pain mild bilateral flank pain COMPARISON: CT abdomen and pelvis 02/14/2019 TECHNIQUE: Multiple real-time sonographic images of the kidneys and urinary bladder were obtained assessing grayscale appearance and color flow FINDINGS: Right kidney measures 12.0 x 5.1 x 6.6 cm and demonstrates no renal calculi, hydronephrosis or suspicious mass lesion. Left kidney measures 14.1 x 5.9 x 8.5 cm and is also unremarkable. Unremarkable urinary bladder with bilateral uret eral jets noted. IMPRESSION: Unremarkable sonographic appearance of the kidneys and urinary bladder. The above report was generated using voice recognition software. It may contain grammatical, syntax or spelling errors. Electronically signed by: Galindo Palacio M.D. 02/18/2019 8:49 AM Blood Pressure Blood Pressure Findings: Low blood pressure Blood Pressure Disposition: further management by hospitalist ITZEL Narrative This is a 18-year-old female who presents emergency department after being here twice for UTI-like symptoms. I did discuss this patient's presentation as well as plan of care with the patient's mother on speaker phone. The patient is actively vomiting and has been unable to keep down her Bactrim. Based on this and IV was established patient was started on 2 g of Rocephin normal saline bolus. Repeat examination revealed improvement in the patient's symptoms. I did discuss the case with the hospitalist service who did agree to admit the p atient. Patient was in agreement with treatment plan. Impression & Plan Urinary tract infection, Pyelonephritis Discharge Plan Visit Data *Final* Discharge Date/Time: 02/18/19 10:47 Chief Complaint: Urinary Symptoms Stated Complaint: KIDNEY INFECTION,VOMITING,INCREASED FEVER ED Provider: Gaetano Garduno Discharge Problem: Urinary tract infection, Pyelonephritis Patient Disposition: Admitted As Inpatient Discharge Instructions Interventions: ED Discharge Assessment Last Done: 02/18/19 10:47 The scribe's documentation has been prepared under my direction and personally reviewed by me in its entirety. I confirm that the note above accurately reflects all work, treatment, procedures, and medical decision making performed by me.
[2019-02-18] MEDS ORDERED: NON-FORMULARY PATIENT'S OWN MED SCH (16:15)
[2019-02-18] MEDS ORDERED: DiphenhydrAMINE HCL 50 MG/ML VIAL IV ONE (21:58)
[2019-02-18] MEDS: KETOROLAC 30 MG/ML VIAL IV PRN (23:49)
[2019-02-19] MEDS ORDERED: ZOLPIDEM TARTRATE 5 MG TAB PO ONE (00:36)
[2019-02-19 06:08] LABS: Hemoglobin 10.1 g/dL (12.0-16.0); Mean Corpuscular Hemoglobin 27.9 pg (25-34); Mean Corpuscular Hgb Conc 32.6 g/dL (32-36); Mean Corpuscular Volume 85.6 fL (80-100); Mean Platelet Volume 10.4 fL (7.4-10.4); Platelet Count 240 K/uL (130-400); RDW Coefficient of Variation 13.3 % (11.5-14.5); RDW Standard Deviation 41.8 fL (36.4-46.3); Red Blood Count 3.62 M/uL (4.2-5.4); White Blood Count 3.31 K/uL (4.8-10.8)
[2019-02-19] MEDS: SODIUM CHLORIDE 0.9% 1000ML 1,000 ML IV SCH (06:09)
[2019-02-19] MEDS: KETOROLAC 30 MG/ML VIAL IV PRN (06:44)
[2019-02-19 06:54] LABS: Albumin Level 2.7 gm/dl (3.4-5.0); BUN Creatinine Ratio 8.8 (10-20); Calcium 8.2 mg/dl (8.5-10.1); Est GFR (African American) 144.6; Est GFR (Non-African American) 124.7; Potassium 3.9 mmol/L (3.5-5.1)
[2019-02-19 07:04] LABS: Albumin Globulin Ratio 0.8 (0.9-2); Bilirubin,Total 0.2 mg/dl (0.2-1); Globulin 3.4 gm/dl (2.5-4.0); Total Protein 6.1 gm/dl (6.4-8.2)
[2019-02-19] MEDS ORDERED: MoRPHine SULFATE 2 MG/ML CARP IV PRN (07:30)
[2019-02-19] MEDS ORDERED: MoRPHine SULFATE 2 MG/ML CARP ONE (07:36)
[2019-02-19] MEDS: LANSOPRAZOLE 15 MG CAPCR PO SCH (07:41)
[2019-02-19] MEDS ORDERED: OXYCODONE/ACETAMINOPHEN 5mg/325mg TAB PO PRN (08:21)
[2019-02-19] MEDS ORDERED: cefTRIAXone SODIUM 2,000 MG in DEXTROSE 5% 50 ML IV SCH (09:00)
[2019-02-19] MEDS ORDERED: ETHINYL ESTRADIOL PO SCH (14:00)
[2019-02-19] MEDS ORDERED: LEVONORGESTREL PO SCH (14:00)
--- NOTE | 2019-02-19 14:02 | Hospitalist Progress Note ---
Date of Service February 19, 2019 Assessment & Plan (1) Pyelonephritis: - Failure of outpatient Cefdinir (started 02/14) and Bactrim therapy (started 02/16); presented with fever/chills at home, severe nausea/vomiting and flank/abd pain. - This is her third episode of pyelonephritis this year -- May 2018, Summer 2018 and current admission. - Previous UC 02/14 positive for E. coli, sensitive to sulfas/cephalosporins but resistant to ampicillin and Unasyn; repeat u/a showed +2 blood, +leuk est but neg for bacteria. - Renal US in the ER was negative; recent CT A/P 02/14 showed right pyelonephritis and bladder wall thickening c/w cystitis -- also has concern for bilat duplicate ureters (see below) - Received Ceftriaxone x 2 days; will start Cipro 500 mg BID -- plan for 10 day course total. - Tylenol prn mild pain, Toradol prn moderate pain; started Percocet q6hr prn severe pain. - Tolerating regular diet; N/V now resolved, d/c'ed IV fluids. (2) Ureteral duplication: - Her mother reported that pt. was evaluated by urology this summer in [place] and had "two ureters bilaterally". 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 - Consulted urology - may be contributing to reflux leading to frequent pyelo infections. (3) Elevated lipase: - Lipase level was 444 on admission - may be nonspecific and related to nausea/vomiting; level trending up, was >500. - Recent CT A/P on 02/14 was negative. - Recommend outpatient monitoring of lipase level. (4) Anemia: - Likely dilutional related to IV fluids. - Monitor CBC daily. (5) Labral tear of hip joint: - S/p repair leading to post op Staph infection. - No acute issues noted, will monitor. (6) Uses control: - Continue medication as prescribed. (7) ADHD (attention deficit hyperactivity disorder): - Holding home Vyvanse as inpatient. (8) GERD (gastroesophageal reflux disease): - Continue PPI 15 mg PO daily. (9) DVT prophylaxis: - SCDs; encourage ambulation. Dispo: Med/surg for treatment of pyelonephritis. Discharge likely on 02/20 if pt. is tolerating PO abx. Updated her mother via phone call this evening regarding plan of care. Supervising Physician Co-Signing Physician Notes PA Supervision Note: I did not personally see or examine the patient today, but I verified all ramirez points of SABA Diego's assessment and plan with the following exceptions/additions: None Subjective Pt. had right sided abd/flank pain this morning -- required Morphine 2 mg IV x 1 dose. She reports abd pain may be partially related to constipation -- has not had a BM since or Mon of last week. Denies nausea/vomiting -- has been tolerating PO intake. Denies chest pain, SOB, tachycardia. Review of Systems Review of Systems: All systems reviewed & are unremarkable except as noted in HPI & below Constitutional: no fever, no chills, no fatigue and no weakness Respiratory: no cough, no dyspnea, no dyspnea on exertion and no wheezing Cardiovascular: no chest pain, no palpitations, no lightheadedness and no edema Gastrointestinal: + abdominal pain and + constipation; no nausea and no vomiting Genitourinary: + flank pain; no dysuria, no urinary frequency and no hematuria Musculoskeletal: no back pain and no joint pain Integumentary: no non-healing lesions Physical Exam Physical Exam: General: Resting comfortably, no acute distress. HEENT: NC/AT; PERRLA with EOMI; [place] conjunctiva, MMM. No erythema of posterior pharynx Neck: Supple and nontender Cardiac: RRR Lungs: CTA bilaterally Abdomen: Bowel normoactive X 4; Nontender to palpation. Extremities: Warm. No edema present Neuro: No focal weakness Skin: No rash Results & Data Vital Signs (Past 12 Hours) Vital Signs Temp Pulse Resp BP Pulse Ox 02/19/19 07:00 36.6 C 79 18 101/67 99 Laboratory Results 02/19/19 02/19/19 Range/Units 05:57 05:57 WBC 3.31 L (4.8-10.8) K/uL RBC 3.62 L (4.2-5.4) M/uL Hgb 10.1 L (12.0-16.0) g/dL Hct 31.0 L (37-47) % MCV 85.6 (80-100) fL MCH 27.9 (25-34) pg MCHC 32.6 (32-36) g/dL RDW Std Deviation 41.8 (36.4-46.3) fL RDW Coeff of Karoline 13.3 (11.5-14.5) % Plt Count 240 (130-400) K/uL MPV 10.4 (7.4-10.4) fL Sodium 141 (136-145) mmol/L Potassium 3.9 (3.5-5.1) mmol/L Chloride 111 H (98-107) mmol/L Carbon Dioxide 22 (21-32) mmol/L Anion Gap 8.0 (3-11) BUN 6 L (7-18) mg/dl Creatinine 0.70 (0.6-1.2) mg/dl Est Cr Clr Drug Dosing 134.0 ml/min Est GFR ( Amer) 144.6 Est GFR (Non-Af Amer) 124.7 BUN/Creatinine Ratio 8.8 L (10-20) Glucose 96 (70-99) mg/dl Calcium 8.2 L (8.5-10.1) mg/dl Magnesium 2.0 (1.8-2.4) mg/dl Total Bilirubin 0.2 (0.2-1) mg/dl AST 11 L (15-37) U/L ALT 13 (12-78) U/L Alkaline Phosphatase 39 L (45-117) U/L Total Protein 6.1 L (6.4-8.2) gm/dl Albumin 2.7 L (3.4-5.0) gm/dl Globulin 3.4 (2.5-4.0) gm/dl Albumin/Globulin Ratio 0.8 L (0.9-2) Lipase 506 H (73-393) U/L PG Care Time/CCT Total # of Minutes Spent Total Time Spent with Patient: Total time spent is greater than 50% in coordination of care (as documented) at patient's floor/unit and/or counseling patient: (1) Anemia Anemia type: unspecified type Qualified Code(s): D64.9 - Anemia, unspecified
[2019-02-19] MEDS: POLYETHYLENE (MIRALAX) 17 GM PACK PO SCH (14:18)
--- NOTE | 2019-02-19 14:38 | Urology Consultation ---
Date of Consultation February 19, 2019 Assessment & Plan (1) Urinary tract infection: (2) Pyelonephritis: 18yo F with right pyelonephritis related to E.Coli UTI. Pt feeling much better, tolerating PO well. Afebrile, VSS. She is somewhat concerned about restarting bactrim given her intractable nausea. We agreed this was most likely related to severity of infection rather than adverse abx reaction. Will not add to medication allergy list at this time. Okay to convert to Ciprofloxacin 500mg BID x14 days upon discharge. Will arrange for outpatient f/u to discuss self-start vs post-coital abx in the future. No further imaging required at this time per Dr. Clayton. Thank you for allowing us to participate in the acute care of Ms. Gamble. Please reconsult us with additional questions, concerns or changes in patient status. History of Present Illness Reason for Consultation: pyelo Requesting Physician: Dr. Lehman Attending Physician: Bri Lehman MD History of Present Illness 18yo F college student from [place], admitted through [facility] ED with persistent n/v - diagnosed with right pyelonephritis secondary to E.Coli UTI, outpatient failure. Pt states symptoms progressed rapidly from first sign of UTI. First evaluated in ED on 02/14, first treated with cefdinir. Returned to ER x2, first for persistent right flank pain in which she was transitioned to Bactrim. She then returned to ER for the 3rd time for intractable n/v which then prompted admiss ion for IV abx therapy. Pt has hx of bilateral duplicated ureter, also with previous admission in May 2018 for right pyelonephritis related to E.coli infection. She states "that episode was much worse than this". Notes reviewed. She then followed up with Urologist back home in [place] but states, "It wasn't for this. I thought I had another UTI but I didn't." Pt feeling much better this afternoon. Tolerating PO without difficulty. Recieving IV rocephin. She reports no changes in sexual partners since May. No other changes to medical history. Allergies Allergy/AdvReac Type Severity Reaction Status Date / Time No Known Allergies Allergy Unverified 02/16/19 14:33 Home Medications Home Medications Medication Instructions Recorded Confirmed Type Vyvanse 20 mg PO QAM 05/23/18 02/18/19 History ibuprofen 200 mg PO QID PRN 05/23/18 02/18/19 History norgestimate-ethinyl estradiol 1 tab PO DAILY 05/23/18 02/18/19 History [Sprintec (28)] cefdinir 300 mg PO BID 10 Days #20 cap 02/14/19 02/18/19 Rx lansoprazole [Prevacid 24Hr] 15 mg PO QAM PRN 02/14/19 02/18/19 History ondansetron 4 mg PO Q6H PRN #10 tab 02/14/19 02/18/19 Rx tramadol [Ultram] 50 mg PO Q4H PRN #15 tab 02/14/19 02/18/19 Rx sulfamethoxazole-trimethoprim 160 mg PO Q12H #20 tab 02/16/19 02/18/19 Rx [Bactrim DS] Patient History Medical History Pyelonephritis (Acute) Labral tear of hip joint UTI (urinary tract infection) Surgical History History of tonsillectomy Family History Brother Asthma Social History Preferred Language: Greenlandic Communication Ability: Effective 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 Beliefs That Will Affect Care: None marital status: Single Current Living Situation: Other Current Living Situation Comment: apartment w/ 4 roommates current occupational status: student Other Information That Helps Us Care for You: No Feels Safe at Home: Yes Safety Concerns: Feels Safe At This Time Smoking Status: Never smoker Hx Alcohol Use: No Hx Substance Use: No Review of Systems Review of Systems: Constitutional: Denies fever, chills, sweats, malaise Eyes: Denies problem reported ENMT: Denies dizziness Resp: Denies cough, Denies shortness of breath CV: No JVD GI: Denies nausea/vomiting : + right flank pain, denies suprapubic pain, dysuria, urgency, frequency, hematuria MS: Denies swelling, stiffness Integ: Denies rash, erythema Neuro: Denies falls, weakness Psych: Denies behavior change Endo: Denies polyphagia, polydipsia Heme: Denies easy bleeding Physical Exam Constitutional: no acute distress and not ill appearing Eyes: no nystagmus ENMT: Ears: no hearing impairment Neck: trachea midline Respiratory: no respiratory distress and no cough Cardiovascular: Vessels: no JVD Chest (Breasts): Chest: normal inspection of chest Gastrointestinal (Abdomen): Inspection/Auscultation: abdomen not distended and no abdominal edema Percussion/Palpation: abdomen soft; abdomen nontender Musculoskeletal: Head/Neck/Chest: normocephalic and head atraumatic Skin: no rashes, warm and dry Neurologic: awake; not confused and not obtunded Psychiatric: Orientation: alert and oriented x 3 Eye Contact: good eye contact Affect: no depressed affect Lymphatic: no lymphadenopathy and no lymphedema Results & Data Vital Signs (Past 12 Hours) Vital Signs Temp Pulse Resp BP Pulse Ox 02/19/19 07:00 36.6 C 79 18 101/67 99 PG Care Time/CCT Total # of Minutes Spent Total Time Spent with Patient: Total time spent is greater than 50% in coordination of care (as documented) at patient's floor/unit and/or counseling patient: (1) Urinary tract infection Hematuria presence: without hematuria Urinary tract infection type: site unspecified Qualified Code(s): N39.0 - Urinary tract infection, site not specified
[2019-02-19] MEDS: CIPROFLOXACIN 500 MG TAB PO SCH (20:29)
[2019-02-19] MEDS: DOCUSATE SODIUM 100 MG CAP PO SCH (20:30)
[2019-02-19] MEDS ORDERED: ZOLPIDEM TARTRATE 5 MG TAB PO PRN (22:19)
[2019-02-20 07:36] LABS: Hematocrit (blood only) 34.4 % (37-47); Hemoglobin 11.6 g/dL (12.0-16.0); Mean Corpuscular Hemoglobin 28.5 pg (25-34); Mean Corpuscular Hgb Conc 33.7 g/dL (32-36); Mean Corpuscular Volume 84.5 fL (80-100); Mean Platelet Volume 10.4 fL (7.4-10.4); Platelet Count 293 K/uL (130-400); Red Blood Count 4.07 M/uL (4.2-5.4); White Blood Count 4.75 K/uL (4.8-10.8)
[2019-02-20] MEDS: CIPROFLOXACIN 500 MG TAB PO SCH (07:57)
[2019-02-20] MEDS: POLYETHYLENE (MIRALAX) 17 GM PACK PO SCH (07:58)
[2019-02-20] MEDS: DOCUSATE SODIUM 100 MG CAP PO SCH (07:58)
[2019-02-20] MEDS: LANSOPRAZOLE 15 MG CAPCR PO SCH (07:59)
[2019-02-20 08:06] LABS: BUN Creatinine Ratio 10.7 (10-20); Calcium 9.3 mg/dl (8.5-10.1); Creatinine Clr Calc Pharmacy 118.7 ml/min; Est GFR (African American) 124.9; Est GFR (Non-African American) 107.8; Potassium 3.9 mmol/L (3.5-5.1)
--- NOTE | 2019-02-20 13:00 | Discharge Summary ---
Date of Service February 20, 2019 Admission HPI Per Admitting Provider Ms. Gamble is a 18 year old college student who presented with failure of outpatient oral antibiotics for treatment of UTI. Pt. presented to the ER on 02/14 with symptoms consistent with pyelonephritis -- she was discharged home with instructions to complete a course of Cefdinir PO. UC from 02/14 was positive for E. coli. She returned to the ER on 02/16/19 with persistent symptoms, including increased flank/abd pain. Pt. was prescribed Bactrim and discharged to home. She presented to the ER this morning with worsening flank/abd pain. She has severe nausea/vomiting leading to inability to tolerate PO abx. Pt. has had fever/chills at home along with weakness/fatigue & headache. Complains of urinary frequency but denies hematuria, dysuria, foul smelling urine. She has had very minimal PO intake, including fluids, due to N/V. Denies chest pain, SOB, LE edema, diarrhea or constipation. ER course: U/a showed +2 blood, trace leuk est, 5-10 WBC but negative for bacteria. She was tachycardic and mildly hypotensive but remained afebrile. Pt. received Ceftriaxone 2 gm IV, Toradol 30 mg IV, Compazine IV and IV fluid bolus. She will be admitted for treatment of pyelonephritis with IV abx. Admission Exam Per Admitting Provider General: Resting comfortably, no acute distress. HEENT: NC/AT; PERRLA with EOMI; [place] conjunctiva, MMM. No erythema of posterior pharynx Neck: Supple and nontender Cardiac: RRR Lungs: CTA bilaterally Abdomen: Bowel normoactive X 4; Nontender to palpation, no CVA tenderness noted. Extremities: Warm. No edema present Neuro: No focal weakness Skin: No rash Principal Diagnosis Pyelonephritis Discharge Exam General: Resting comfortably, no acute distress. HEENT: NC/AT; PERRLA with EOMI; [place] conjunctiva, MMM. No erythema of posterior pharynx Neck: Supple and nontender Cardiac: RRR Lungs: CTA bilaterally Abdomen: Bowel normoactive X 4; Nontender to palpation. Extremities: Warm. No edema present Neuro: No focal weakness Skin: No rash Discharge Data Allergies Allergy/AdvReac Type Severity Reaction Status Date / Time No Known Allergies Allergy Unverified 02/16/19 14:33 Consultations 02/18/19 09:45 ED Decision to Admit Stat 02/18/19 16:18 Consult Urology Routine 02/20/19 08:14 Burn CD for patient Routine Ordered Studies 02/18/19 07:12 US renal/blad retro comp Stat [facility] Hospital Course (1) Pyelonephritis: Failure of outpatient Cefdinir (started 02/14) and Bactrim therapy (started 02/16); presented with fever/chills at home, severe nausea/vomiting and flank/abd pain. This is her third episode of pyelonephritis this year -- May 2018, Summer 2018 and current admission. Previous UC 02/14 positive for E. coli, sensitive to sulfas/cephalosporins but resistant to ampicillin and Unasyn; repeat u/a showed +2 blood, +leuk est but neg for bacteria. Renal US in the ER was negative; recent CT A/P 02/14 showed right pyelonephritis and bladder wall thickening c/w cystitis -- also has concern for bilat duplicate ureters (see below) Received Ceftriaxone x 2 days; converted to Cipro 500 mg BID, will need to complete total of 14 days of abx. Recommend f/u with PCP and urology. (2) Ureteral duplication: Her mother reported that pt. was evaluated by urology this summer in [place] and had "two ureters bilaterally". 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 Consulted urology, appreciate input. No further imaging indicated at this time (3) Elevated lipase: Lipase level was 444 on admission - may be nonspecific and related to nausea/vomiting; level trended up, was >500 and then came christopher to 489 on day of discharge Recent CT A/P on 02/14 was negative. Never had any abdominal epigastric pain Recommend repeat lipase level as outpatient. (4) Anemia: Likely dilutional related to IV fluids. (5) Labral tear of hip joint: S/p repair leading to post op Staph infection. No acute issues noted, will monitor. (6) Uses control: Continued medication as prescribed. (7) ADHD (attention deficit hyperactivity disorder): Held home Vyvanse as inpatient. (8) GERD (gastroesophageal reflux disease): PPI daily. (9) DVT prophylaxis: SCDs; encourage ambulation. Discharged to home on 02/20/19. Total Time Total Time Spent Total Time Spent (In Minutes): >30 minutes Total Time Includes: Examination of the Patient, Discharge Planning, Medication Reconciliation, Communication With Other Providers and Other Discharge Plan Discharge Items Patient Disposition: Home - Self-Care Reason For Visit: PYELONEPHRITIS Discharge Diagnosis: Right pyelonephritis secondary to E. coli Condition on Discharge: Good Goals: You have been hospitalized for an acute medical problem. During your stay at [facility], we have made an effort to correct the problem that brought you to the hospital while keeping you as comfortable as possible. Medications were used to bring your condition under control and your discharge instructions will include directions for any medications you should take after leaving the hospital. Please make sure you see your Primary Care Provider as part of your follow up plan. Activity: As commented below Exercise/Sports: Gradually increase as tolerated and Wait until after follow-up appointment Non-emergency contact: Primary Care Provider and Urologist Call non-emergency contact if: you have any medication questions, your symptoms worsen, your pain is not controlled, your pain is worsening, your pain is unusual for you, your pain is concerning for you and you have a fever Follow-up/Referrals: Gilbert Lemus MD [Physician] - 03/20/19 1:30 pm (Please, follow up at [facility] Urology Office with Dr. Gilbert Lemus on MondayMarch 20 at 1:30 pm. *The office is located at [address] [place] [address] in [place]. If you have any questions, call the office at [phone].) Anika Cortes MD [Primary Care Provider] - 02/26/19 9:40 am (Please, follow up at [facility] with Dr. Anika Cortes on MondayFebruary 26 at 9:40 am. *If you need to change this appointment, call the office at [phone].) Diet: Regular Addtl Attending Provider Instructions: 1. Pyelonephritis * Please take Ciprofloxacin 500 mg twice daily to complete a 14 day course (including antibiotics received as inpatient) - prescription was sent to [facility] on [facility]. * A follow up appointment will be scheduled with your PCP in 1-2 weeks. * A follow up appointment will also be scheduled with urology in 3-4 weeks. * Please drink plenty of fluids at home - at least 8-10 glasses of water per day. 2. Constipation * It is recommended to continue an over the counter stool softener, such as Colace 100 mg twice daily, in the setting of constipation. * You can take Miralax as needed for constipation unrelieved with Colace. Pending Studies at Discharge: No Stand-Alone Forms: My [facility], Work/School Release (Inpt) Medications and DC Order Prescriptions: New ciprofloxacin HCl 500 mg Tablet 500 mg PO BID 11 Days Qty: 22 RF: 0 Continued lansoprazole [Prevacid 24Hr] 15 mg Capsule,Delayed Release(Dr/Ec) 15 mg PO QAM PRN (Reason: Heartburn) RF: 0 ondansetron 4 mg tablet,disintegrating 4 mg PO Q6H PRN (Reason: nausea and vomiting) Qty: 10 RF: 0 norgestimate-ethinyl estradiol [Sprintec (28)] 0.25-35 mg-mcg Tablet 1 tab PO DAILY RF: 0 ibuprofen 200 mg Tablet 200 mg PO QID PRN (Reason: Pain) RF: 0 Vyvanse 20 mg Tablet,Chewable 20 mg PO QAM RF: 0 Discontinued tramadol [Ultram] 50 mg tablet 50 mg PO Q4H PRN (Reason: pain) Qty: 15 RF: 0 cefdinir 300 mg capsule 300 mg PO BID 10 Days Qty: 20 RF: 0 sulfamethoxazole-trimethoprim [Bactrim DS] 800-160 mg tablet 160 mg PO Q12H Qty: 20 RF: 0 Discharge Orders: Discharge Order (Routine); Ordered 02/20/19 Ordered By: Bri Lehman Admission Data Admit Date/Time: 02/19/19 15:19 Attending Provider: Bri Lehman Admit Provider: Hailey Diego Primary Care Provider: Anika Cortes Other Providers: Bri Lehman ; Misael Clayton Other Interventions: Discharge Summary Assessment (RN) Last Done: 02/20/19 10:46 DC Date/Time DO NOT enter until pt leaves facility: 02/20/19 13:08 Supervising Physician Co-Signing Physician Notes PA Supervision Note: I personally saw and examined the patient. I verified all ramirez points and agree with SABA Diego with the following exceptions and/or additions: Doing much better, nettie po, no further N/V, Right flank pain much improved. Afebrile. No dysuria. VSS NAD, AAOx3 RRR no mgr CTAB no wcr Abd +mild CVA tenderness on right, otherwise NT ND +BS, soft Ext no calf tenderness, no edema 18 yo female with Acute pyelonephritis, failure of outpatient treatment due to intractable N/V. Now much improved Stable for dc to home on Cipro and close f/u
== END 2019-02-20 13:08 | disposition home or self-care (01) | DRG 690 ==
LOC: ED 06:44 → 4W 10:02 → INTOOBSV 10:02 → 4W 10:47